=== PATIENT | male | born 1955 | race Caucasian/White ===

== ENCOUNTER 2018-06-21 11:08 | Day surgery (SDC) | payer BC ==
[2018-06-19 12:53] VITALS: BMI 28.5
[2018-06-21] MEDS ORDERED: LACTATED RINGERS 1,000 ML IV ONE (11:35)
[2018-06-21] MEDS ORDERED: LIDOCAINE 1% 20 ML VIAL (10MG/ML) FOR IV START INTRADERMA ONE (11:42)
[2018-06-21 11:46] VITALS: RESP 16; TEMP 97.6
[2018-06-21] MEDS ORDERED: PROPOFOL 10 MG/ML 20 ML VIAL IV ONE (12:52)
--- NOTE | 2018-06-21 13:34 | P.PCN ---
Date of Procedure: 06/21/18 Procedure(s) Performed: Procedure: Colonoscopy and biopsy. Preoperative diagnosis: Rectal bleeding. Postoperative diagnosis: 1. Nonspecific colitis involving distal 30 cm and the area of the IC valve. 2. Diffuse diverticulosis. 3. Biopsies obtained from terminal ileum, IC valve area and sigmoid. Preparation: HalfLytely prep. Sedation: Was provided by anesthesia. Brief clinical history: The patient is a 62-year-old male who is scheduled for this evaluation because of rectal bleeding that he has experienced for the last 6 weeks or so. The patient had normal colonoscopy 3 and 8 years ago with no findings of polyps. He started to have daily rectal bleeding at around 6 weeks ago with increased number of, somewhat urgent bowel movements, especially in the mornings with mucus and blood. He thinks that the bleeding has been improving for the last few days. Procedure: With the patient on his left lateral decubitus position and after informed consent and adequate sedation, the perianal area was inspected and it did not show any fissures or fistulas. There were no masses felt on digital rectal examination. The Olympus CFH 190L video colonoscope was then inserted in the rectum in the usual fashion and advanced to the cecum. I intubated the ileocecal valve and examined the terminal ileum. Terminal ileum appeared within normal. The ileocecal valve showed few spots of submucosal hemorrhage and erythema but no ulcers or bleeding. The distal 30 cm of the colon, with somewhat spared rectum, showed patches of erythema and submucosal hemorrhage but no ulcers, erosions or spontaneous bleeding. In some areas, especially in the rectum, normal mucosa appeared interspersed more obviously between the areas of involvement. No polyps or tumors were seen. There were multiple diverticular orifices seen scattered along the length of the bowel including the right colon. The mucosal changes in the distal 30 cm were obviously in the vicinity of diverticular orifices in that segment. There was no spontaneous bleeding. I retroflexed the endoscope in the rectum before the endoscope was withdrawn. The patient tolerated the procedure well. Plan: The patient was reassured. Will await biopsy results. It is possible that we are dealing with a self-limited infectious process or self-limited colitis. Less likely recent bout of diverticulitis. The possibility of nonspecific inflammatory bowel disease, such as ulcerative or Crohn's colitis should be kept in mind. I plan to see him in the office in a week or 10 days and make further plans based on his course and biopsy results. I will keep you updated on his progress.
[2018-06-21 13:43] VITALS: BP 122/73; PULSE 53
== END 2018-06-21 14:05 | disposition home or self-care (01) ==
LOC: ORWHC2ENDO 11:08 → EDSEX 12:30 → ORWHC2ENDO 14:05
DX: K62.5 Hemorrhage of anus and rectum (principal); K57.90 Diverticulosis of intestine, part unspecified, without perforation or abscess without bleeding; K52.89 Other specified noninfective gastroenteritis and colitis
CPT/HCPCS: 88305; 45380; J2704

== ENCOUNTER 2019-12-05 16:19 | Emergency (ER) | payer BC ==
[2019-12-05 16:32] VITALS: RESP 18; TEMP 98.4
--- NOTE | 2019-12-05 17:04 | ED ---
General Adult HPI - General Chief complaint: Neuro Symptoms/Deficit Stated complaint: Poss Mini Stroke Time Seen by Provider: 12/05/19 16:25 Source: patient, RN notes reviewed, old records reviewed Mode of arrival: ambulatory Limitations: no limitations - History of Present Illness Initial comments: This is a 63-year-old male who presents emergency Department with an episode of altered mental status. According to the he had just had sex when she came back into the room and he was in bed and he was confused and was asking questions that didn't make sense to her. He stated he felt fine but he couldn't tell his their address and didn't know why they were going to the store and this persisted for about 40 minutes and they head on into the emergency department. Symptoms have completely resolved and patient is alert and oriented 4 however he is amnestic to the during that 40 minutes. Of confusion. Patient denies headache patient denies any numbness or weakness. states was no slurred speech. Patient denies any chest pain or palpitations or difficulty breathing. Patient denies any fever chills or cough per patient denies abdominal pain patient denies nausea vomiting or diarrhea. - Related Data Home Medications Medication Instructions Recorded Confirmed Levothyroxine Sodium 100 mcg PO DAILY 06/19/18 06/21/18 Rosuvastatin [Crestor] 20 mg PO DAILY 06/19/18 06/21/18 Allergies Allergy/AdvReac Type Severity Reaction Status Date / Time No Known Allergies Allergy Verified 12/05/19 16:31 Review of Systems ROS Statement: Those systems with pertinent positive or pertinent negative responses have been documented in the HPI. ROS Other: All systems not noted in ROS Statement are negative. Past Medical History Past Medical History: Hyperlipidemia, Thyroid Disorder History of Any Multi-Drug Resistant Organisms: None Reported Past Surgical History: Joint Replacement Additional Past Surgical History / Comment(s): bilateral hips. DEVIATED SEPTUM REPAIRED. COLONOSCOPY Past Anesthesia/Blood Transfusion Reactions: Motion Sickness Past Psychological History: No Psychological Hx Reported Smoking Status: Never smoker Past Alcohol Use History: Daily Past Drug Use History: None Reported - Past Family History Mother Family Medical History: Cancer General Exam - General Exam Comments Initial Comments: GENERAL: Patient is well-developed and well-nourished. Patient is nontoxic and well- hydrated and is in no acute distress. ENT: Neck is soft and supple. No significant lymphadenopathy is noted. Oropharynx is clear. Moist mucous membranes. Neck has full range of motion without eliciting any pain. EYES: The sclera were anicteric and conjunctiva were pink and moist. Extraocular movements were intact and pupils were equal round and reactive to light. Eyelids were unremarkable. PULMONARY: Unlabored respirations. Good breath sounds bilaterally. No audible rales rhonchi or wheezing was noted. CARDIOVASCULAR: There is a regular rate and rhythm without any murmurs gallops or rubs. Femoral pulses are equal bilaterally ABDOMEN: Soft and nontender with normal bowel sounds. No palpable organomegaly was noted. There is no palpable pulsatile mass. SKIN: Skin is clear with no lesions or rashes and otherwise unremarkable. NEUROLOGIC: Patient is alert and oriented x3. Cranial nerves II through XII are grossly intact. Motor and sensory are also intact. Normal speech, volume and content. Symmetrical smile. Cerebellar exam grossly intact. MUSCULOSKELETAL: Normal extremities with adequate strength and full range of motion. No lower extremity swelling or edema. No calf tenderness. LYMPHATICS: No significant lymphadenopathy is noted PSYCHIATRIC: Normal psychiatric evaluation. Normal interpersonal interactions appears functionally intact in deals appropriately with others. No signs of depression. No signs of anxiety. No delusions. No hallucinations. Limitations: no limitations Course Vital Signs 12/05/19 12/05/19 16:24 16:31 Temperature 98.4 F Pulse Rate 70 Respiratory 18 18 Rate Blood Pressure 164/73 O2 Sat by Pulse 97 Oximetry Medical Decision Making - Medical Decision Making EKG shows normal sinus rhythm at 71 bpm AK interval is 160 QRS is 98 QT interval 400 QTC is 434. Patient's EKG shows no ST segment elevation or depression. Chest x-ray shows no acute abnormality. CT of the brain shows no acute abnormality. I told the patient he needed to stay because of the TIA-like symptoms but he refused any states he was signed out even though there was a chance that he could have another stroke and/or possible . is in the room and she was in agreement. Patient states he has an appointment on Monday with his doctor. - Lab Data Result diagrams: 12/05/19 17:03 12/05/19 17:03 Lab Results 12/05/19 12/05/19 12/05/19 Range/Units 17:03 17:03 17:03 WBC 9.1 (3.8-10.6) k/uL RBC 4.59 (4.30-5.90) m/uL Hgb 14.8 (13.0-17.5) gm/dL Hct 44.9 (39.0-53.0) % MCV 97.9 (80.0-100.0) fL MCH 32.4 (25.0-35.0) pg MCHC 33.1 (31.0-37.0) g/dL RDW 14.2 (11.5-15.5) % Plt Count 195 (150-450) k/uL Neutrophils % 82 % Lymphocytes % 10 % Monocytes % 5 % Eosinophils % 2 % Basophils % 0 % Neutrophils # 7.4 (1.3-7.7) k/uL Lymphocytes # 0.9 L (1.0-4.8) k/uL Monocytes # 0.4 (0-1.0) k/uL Eosinophils # 0.1 (0-0.7) k/uL Basophils # 0.0 (0-0.2) k/uL PT 10.4 (9.0-12.0) sec INR 1.0 (<1.2) APTT 24.3 (22.0-30.0) sec Sodium 139 (137-145) mmol/L Potassium 4.3 (3.5-5.1) mmol/L Chloride 104 (98-107) mmol/L Carbon Dioxide 25 (22-30) mmol/L Anion Gap 10 mmol/L BUN 16 (9-20) mg/dL Creatinine 0.87 (0.66-1.25) mg/dL Est GFR (CKD-EPI)AfAm >90 (>60 ml/min/1.73 sqM) Est GFR (CKD-EPI)NonAf >90 (>60 ml/min/1.73 sqM) Glucose 184 H (74-99) mg/dL Calcium 9.8 (8.4-10.2) mg/dL Total Bilirubin 0.7 (0.2-1.3) mg/dL AST 26 (17-59) U/L ALT 19 (4-49) U/L Alkaline Phosphatase 83 (38-126) U/L Troponin I (0.000-0.034) ng/mL Total Protein 7.7 (6.3-8.2) g/dL Albumin 4.9 (3.5-5.0) g/dL 07/23/20 Range/Units 17:03 WBC (3.8-10.6) k/uL RBC (4.30-5.90) m/uL Hgb (13.0-17.5) gm/dL Hct (39.0-53.0) % MCV (80.0-100.0) fL MCH (25.0-35.0) pg MCHC (31.0-37.0) g/dL RDW (11.5-15.5) % Plt Count (150-450) k/uL Neutrophils % % Lymphocytes % % Monocytes % % Eosinophils % % Basophils % % Neutrophils # (1.3-7.7) k/uL Lymphocytes # (1.0-4.8) k/uL Monocytes # (0-1.0) k/uL Eosinophils # (0-0.7) k/uL Basophils # (0-0.2) k/uL PT (9.0-12.0) sec INR (<1.2) APTT (22.0-30.0) sec Sodium (137-145) mmol/L Potassium (3.5-5.1) mmol/L Chloride (98-107) mmol/L Carbon Dioxide (22-30) mmol/L Anion Gap mmol/L BUN (9-20) mg/dL Creatinine (0.66-1.25) mg/dL Est GFR (CKD-EPI)AfAm (>60 ml/min/1.73 sqM) Est GFR (CKD-EPI)NonAf (>60 ml/min/1.73 sqM) Glucose (74-99) mg/dL Calcium (8.4-10.2) mg/dL Total Bilirubin (0.2-1.3) mg/dL AST (17-59) U/L ALT (4-49) U/L Alkaline Phosphatase (38-126) U/L Troponin I <0.012 (0.000-0.034) ng/mL Total Protein (6.3-8.2) g/dL Albumin (3.5-5.0) g/dL Disposition Clinical Impression: Transient cerebral ischemia Disposition: Left Against Medical Advice Condition: Good Instructions (If sedation given, give patient instructions): Transient Ischemic Attack (ED) Additional Instructions: Patient should take a full aspirin every day Is patient prescribed a controlled substance at d/c from ED?: No Referrals: Clinton Lentz MD [Primary Care Provider] - 1-2 days Time of Disposition: 18:45
[2019-12-05 17:14] LABS: Basophils % (A) 0 %; Eosinophils # (A) 0.1 k/uL (0-0.7); Eosinophils % (A) 2 %; HCT 44.9 % (39.0-53.0); HGB 14.8 gm/dL (13.0-17.5); Lymphocytes # (A) 0.9 k/uL (1.0-4.8); Lymphocytes % (A) 10 %; MCH 32.4 pg (25.0-35.0); MCHC 33.1 g/dL (31.0-37.0); MCV 97.9 fL (80.0-100.0); Mean Platelet Volume 8.4; Monocytes # (A) 0.4 k/uL (0-1.0); Monocytes % (A) 5 %; Neutrophils # (A) 7.4 k/uL (1.3-7.7); Neutrophils % (A) 82 %; Platelet Count 195 k/uL (150-450); RBC 4.59 m/uL (4.30-5.90); RDW 14.2 % (11.5-15.5); WBC 9.1 k/uL (3.8-10.6)
[2019-12-05 17:31] LABS: Partial Thromboplastin Time 24.3 sec (22.0-30.0); Prothrombin Time 10.4 sec (9.0-12.0)
[2019-12-05 17:32] LABS: ALT 19 U/L (4-49); AST 26 U/L (17-59); African American GFR (CKD) >90 (>60 ml/min/1.73 sqM); Albumin 4.9 g/dL (3.5-5.0); Alkaline Phosphatase 83 U/L (38-126); Anion Gap 10 mmol/L; Blood Urea Nitrogen 16 mg/dL (9-20); Calcium 9.8 mg/dL (8.4-10.2); Carbon Dioxide 25 mmol/L (22-30); Chloride 104 mmol/L (98-107); Glucose 184 mg/dL (74-99); Non-African American GFR(CKD) >90 (>60 ml/min/1.73 sqM); Potassium 4.3 mmol/L (3.5-5.1); Sodium 139 mmol/L (137-145); Total Bilirubin 0.7 mg/dL (0.2-1.3); Total Protein 7.7 g/dL (6.3-8.2)
--- NOTE | 2019-12-05 17:35 | CT ---
EXAMINATION: CT brain wo con for TPA DATE AND TIME: 12/05/2019 5:22 PM CLINICAL INDICATION: PHH; Neuro deficit, acute, stroke suspected TECHNIQUE: Standard departmental protocol. DLP 1106.4 mGy-cm COMPARISON: None. FINDINGS: The calvarium is intact. There is no intracranial hemorrhage. There is no intracranial mass or mass effect. No definite new intra-axial or extra-axial attenuation defect. The paranasal sinuses, middle ear cavities, and mastoid sinus air cells are clear. The orbits are unremarkable. IMPRESSION: NO ACUTE PROCESS.
--- NOTE | 2019-12-05 18:29 | XR ---
EXAMINATION: XR chest 2V DATE AND TIME: 12/05/2019 5:43 PM CLINICAL INDICATION: PHH; altered mental status TECHNIQUE: Departmental protocol COMPARISON: None FINDINGS: The lungs are clear. The pleural spaces are negative. The cardiac silhouette is not enlarged. The remainder of the mediastinal silhouette is unremarkable. The skeletal structures and soft tissues are negative for acute findings. IMPRESSION: NO ACUTE PROCESS.
[2019-12-05] MEDS ORDERED: ASPIRIN 325 MG TAB PO STA (18:43)
[2019-12-05 18:45] VITALS: BP 139/68; PULSE 73
== END 2019-12-05 19:01 | disposition left against medical advice (07) ==
LOC: EC 16:19
DX: G45.9 Transient cerebral ischemic attack, unspecified (principal); Z53.29 Procedure and treatment not carried out because of patient's decision for other reasons; E78.5 Hyperlipidemia, unspecified; E07.9 Disorder of thyroid, unspecified; Z79.890 Hormone replacement therapy; Z79.899 Other long term (current) drug therapy
CPT/HCPCS: 36415; 70450; 71046; 80053; 84484; 85025; 85610; 85730; 93005; 99285

== ENCOUNTER → 2019-12-19 | Outpatient (CLI) | payer BC ==
--- NOTE | 2019-12-19 09:19 | US ---
EXAMINATION TYPE: US carotid duplex BILAT DATE OF EXAM: 12/19/2019 COMPARISON: NONE CLINICAL HISTORY: G45.9 transient cerebral ischemic attack. TIA EXAM MEASUREMENTS: RIGHT: Peak Systolic Velocity (PSV) cm/sec ----- Right CCA: 118 ----- Right ICA: 151 ----- Right ECA: 151 ICA/CCA ratio: 1.3 RIGHT: End Diastole cm/sec ----- Right CCA: 23.8 ----- Right ICA: 28.3 ----- Right ECA: 16.3 LEFT: Peak Systolic Velocity (PSV) cm/sec ----- Left CCA: 109 ----- Left ICA: 105 ----- Left ECA: 165 ICA/CCA ratio: 1.0 LEFT: End Diastole cm/sec ----- Left CCA: 24.5 ----- Left ICA: 34.5 ----- Left ECA: 13.7 VERTEBRALS (direction of flow): Right Vertebral: Antegrade Left Vertebral: Antegrade Rhythm: Normal Grayscale images show no significant plaque at carotid bulb level bilaterally.Incidental finding, r ight thyroid nodule= 1.1 cm IMPRESSION: No hemodynamically significant stenosis either internal carotid artery. Thyroid nodule g reater than 1.0 cm incidentally noted. Advise complete thyroid ultrasound follow-up if this is not kn own finding. Criteria for Assigning % of Stenosis / Diameter reduction (Estimation based on the indirect measurements of the internal carotid artery velocities (ICA PSV). 1. Normal (no stenosis)=ICA PSV < 125 cm/s: ratio < 2.0: ICA EDV<40 cm/s. 2. Less than 50% stenosis=ICA PSV < 125 cm/s: ratio < 2.0: ICA EDV<40 cm/s. 3. 50 to 69% stenosis=ICA PSV of 125 to 230 cm/s: ration 2.0 ? 4.0: ICA EDV 40-100 cm/s. 4. Greater than 70% stenosis to near occlusion= ICA PSV > 230 cm/s: ratio > 4.0: ICA EDV > 100 cm/s. 5. Near occlusion= ICA PSV velocities may be low or undetectable: variable ratio and ICA EDV. 6. Total occlusion=unable to detect flow.
== END | disposition home or self-care (01) ==
LOC: RADUSWWP 08:47
PROVIDERS: ATTEND Family Medicine
DX: G45.9 Transient cerebral ischemic attack, unspecified (principal)
CPT/HCPCS: 93880

== ENCOUNTER → 2020-01-21 | Outpatient (CLI) | payer BC ==
--- NOTE | 2020-01-21 12:45 | ECHOF ---
Referral Reason:E03.9 hypothyroidism, E04.1 nontoxic nodule MEASUREMENTS -------- HEIGHT: 182.9 cm WEIGHT: 95.3 kg BP: 147/70 RVIDd: 3.0 cm (< 3.3) IVSd: 1.1 cm (0.6 - 1.1) LVIDd: 4.5 cm (3.9 - 5.3) LVPWd: 1.1 cm (0.6 - 1.1) IVSs: 1.7 cm LVIDs: 3.4 cm LVPWs: 1.8 cm LA Diam: 3.7 cm (2.7 - 3.8) LAESV Index (A-L): 18.40 ml/m Ao Diam: 3.5 cm (2.0 - 3.7) AV Cusp: 2.2 cm (1.5 - 2.6) MV EXCURSION: 20.477 mm (> 18.000) MV EF SLOPE: 103 mm/s (70 - 150) EPSS: 0.7 cm MV E Dominic: 0.64 m/s MV DecT: 305 ms MV A Dominic: 0.87 m/s MV E/A Ratio: 0.73 RAP: 5.00 mmHg RVSP: 23.28 mmHg FINDINGS -------- Sinus rhythm. This was a technically good study. The left ventricular size is normal. There is borderline concentric left ventricular hypertrophy. Overall left ventricular systolic function is normal with, an EF between 60 - 65 %. The right ventricle is normal in size. Normal LA size by volume 22+/-6 ml/m2. The right atrium is normal in size. Aneurysmal Interatrial septum. The aortic valve is trileaflet and appears structurally normal. The mitral valve is normal. Mild tricuspid regurgitation present. Right ventricular systolic pressure is normal at < 35 mmHg. Trace/mild (physiologic) pulmonic regurgitation. The aortic root size is normal. Normal inferior vena cava with normal inspiratory collapse consistent with estimated right atrial pre ssure of 5 mmHg. There is no pericardial effusion. CONCLUSIONS -------- 1. The left ventricular size is normal. 2. There is borderline concentric left ventricular hypertrophy. 3. Overall left ventricular systolic function is normal with, an EF between 60 - 65 %. 4. Aneurysmal Interatrial septum. 5. Mild tricuspid regurgitation present. 6. Trace/mild (physiologic) pulmonic regurgitation. 7. There is no pericardial effusion. MEDICAL BILLING CLERK: Annabelle Lopes RDCS
--- NOTE | 2020-01-21 13:38 | US ---
EXAMINATION TYPE: US thyroid st tissue head/neck DATE OF EXAM: 01/21/2020 COMPARISON: Carotid Duplex CLINICAL HISTORY: E03.9 HYPOTHYROIDISM. Takes Levothyroxine. GLAND SIZE: Right Lobe: 3.8 x 1.5 x 1.9 cm Overall Parenchyma: homogenous Left Lobe: 3.1 x 1.8 x 1.5 cm Overall Parenchyma: homogeneous Isthmus Thickness: 0.5 cm NODULES RIGHT: # of nodules measured on right: 1 1. 1.1 X 1.1 x 1.2 cm isoechoic solid nodule at the upper pole with ill defined margins. This nodu le is taller than wide and shows intranodular vascularity. LEFT: # of nodules measured on left: 1 1. 1.9 X 1.5 x 1.9 cm hypoechoic solid nodule at the lower pole with well-defined margins. This no dule is taller than wide and shows intranodular vascularity. ISTHMUS: # of nodules measured in the isthmus: 0 Bilateral neck scanned: no evidence of lymphadenopathy. Homogeneous small size thyroid with 2 greater than 1 cm thyroid nodules noted as detailed above. IMPRESSION: The 1.2 cm right thyroid nodule is TR4 lesion moderately suspicious; advise ultrasound fo llow-up at 1, 2, 3, and 5 years. The larger 1.9 cm left thyroid nodule is highly suspicious TR5 lesio n and ultrasound-guided sampling is advised.
== END | disposition home or self-care (01) ==
LOC: RADECHMAIN 11:19
PROVIDERS: ATTEND Family Medicine
DX: I07.1 Rheumatic tricuspid insufficiency (principal); I25.3 Aneurysm of heart; E04.1 Nontoxic single thyroid nodule; E03.9 Hypothyroidism, unspecified
CPT/HCPCS: 76536; 93306

== ENCOUNTER 2021-03-02 17:52 | Observation (INO) | payer MEDICARE ==
[2021-03-02 18:23] LABS: Glucose,Whole Blood 173 mg/dL (75-99)
[2021-03-02 18:33] LABS: Basophils % (A) 0 %; Eosinophils % (A) 0 %; HCT 44.9 % (39.0-53.0); HGB 15.8 gm/dL (13.0-17.5); Lymphocytes # (A) 0.4 k/uL (1.0-4.8); Lymphocytes % (A) 6 %; MCH 34.9 pg (25.0-35.0); MCHC 35.2 g/dL (31.0-37.0); Mean Platelet Volume 8.2; Monocytes # (A) 0.3 k/uL (0-1.0); Monocytes % (A) 5 %; Neutrophils # (A) 5.9 k/uL (1.3-7.7); Neutrophils % (A) 88 %; Platelet Count 204 k/uL (150-450); RBC 4.54 m/uL (4.30-5.90); RDW 14.2 % (11.5-15.5); WBC 6.8 k/uL (3.8-10.6)
[2021-03-02 18:42] LABS: INR 0.9 (<1.2); Partial Thromboplastin Time 22.7 sec (22.0-30.0)
[2021-03-02 18:43] LABS: ALT 21 U/L (4-49); AST 22 U/L (17-59); African American GFR (CKD) >90 (>60 ml/min/1.73 sqM); Albumin 4.6 g/dL (3.5-5.0); Alcohol <10 mg/dL; Alkaline Phosphatase 82 U/L (38-126); Anion Gap 12 mmol/L; Blood Urea Nitrogen 22 mg/dL (9-20); Carbon Dioxide 22 mmol/L (22-30); Chloride 105 mmol/L (98-107); Glucose 189 mg/dL (74-99); Non-African American GFR(CKD) >90 (>60 ml/min/1.73 sqM); Sodium 139 mmol/L (137-145); Total Bilirubin 0.7 mg/dL (0.2-1.3); Total Protein 7.4 g/dL (6.3-8.2)
--- NOTE | 2021-03-02 19:45 | ED ---
General Adult HPI - General Chief complaint: Altered Mental Status Stated complaint: AMS Source: patient Mode of arrival: ambulatory Limitations: no limitations - History of Present Illness Initial comments: 65-year-old male past history of hyperlipidemia and thyroid disorder presents emergency Department with reported altered mental status. is at bedside and helps provide the history. states that she has left the house. She last talked to her around 4 PM he stated that he was given fishing. reports that he remembers looking the boat up in driving to the [employer]. At this point the patient became confused. States he does not [place] a [place] phone [place] or being at the [employer]. He apparently called his neighbor and told him that he was having difficulty remembering how to put his boat in the water. The neighbor then called the . The patient began driving home however told him to casing puller and she picked him up and brought him into the emergency room. He has had a previous episode similar approximate one year ago. States he was diagnosed with transient global ischemia. The patient denies any recent head injuries. Denies history of strokes. No recent fevers or chills. Patient denies any weakness in his extremities. No chest pain or shortness of breath. Patient not on any blood thinners. Denies any recent med ication changes. No other alleviating, precipitating or modifying factors - Related Data Home Medications Medication Instructions Recorded Confirmed Levothyroxine Sodium 100 mcg PO DAILY 06/19/18 03/02/21 Rosuvastatin [Crestor] 20 mg PO HS 06/19/18 03/02/21 Mesalamine [Lialda] 4.8 gm PO DAILY 03/02/21 03/02/21 predniSONE 7.5 mg PO DAILY 03/02/21 03/02/21 Allergies Allergy/AdvReac Type Severity Reaction Status Date / Time No Known Allergies Allergy Verified 03/02/21 20:42 Review of Systems ROS Statement: Those systems with pertinent positive or pertinent negative responses have been documented in the HPI. ROS Other: All systems not noted in ROS Statement are negative. Past Medical History Past Medical History: Hyperlipidemia, Thyroid Disorder History of Any Multi-Drug Resistant Organisms: None Reported Past Surgical History: Joint Replacement Additional Past Surgical History / Comment(s): bilateral hips. DEVIATED SEPTUM REPAIRED. COLONOSCOPY Past Anesthesia/Blood Transfusion Reactions: Motion Sickness Past Psychological History: No Psychological Hx Reported Smoking Status: Never smoker Past Alcohol Use History: Daily Past Drug Use History: None Reported - Past Family History Mother Family Medical History: Cancer General Exam Limitations: no limitations Course Vital Signs 03/02/21 03/02/21 03/02/21 18:02 19:41 22:21 Temperature 99.8 F H 98.8 F Pulse Rate 93 73 68 Respiratory 20 19 18 Rate Blood Pressure 164/90 139/83 133/88 O2 Sat by Pulse 95 98 98 Oximetry EKG Findings - EKG Comments: EKG Findings:: EKG demonstrates a sinus rhythm with a ventricular rate of 99. NH interval 146. QRS 86. QTC 442. Q wave with inverted T-wave in lead 3. No acute ST segment elevations or depressions Medical Decision Making - Medical Decision Making On arrival patient was promptly placed in trauma bay 1. History and physical exam was performed. NIH is assessed and is 0. Patient is alert and oriented at this time however does not have recollection of the past 2 hours. Last known well would be placed at 4 PM. Due to NIH of 0 at this time code stroke is not initiated however patient is promptly sent over for CT of his brain. CT demonstrates no acute intracranial hemorrhage, midline shift or mass effect. CT angiography demonstrates no vascular occlusion. Minimal narrowing at the bilateral common carotid bifurcation and minimal aphthous chronic disease in the bilateral intracranial internal carotid arteries. The patient is reassessed and NIH continues to be 0. I did recommend admission to the hospital for further evaluation and neurology consultation reports patient did agree to. Spoke with Dr. Black who agreed to admit the patient. Patient taken to the floor in stable condition. - Lab Data Result diagrams: 03/02/21 18:29 03/02/21 18:29 Lab Results 03/02/21 03/02/21 03/02/21 Range/Units 18:11 18:29 18:29 WBC 6.8 (3.8-10.6) k/uL RBC 4.54 (4.30-5.90) m/uL Hgb 15.8 (13.0-17.5) gm/dL Hct 44.9 (39.0-53.0) % MCV 99.0 (80.0-100.0) fL MCH 34.9 (25.0-35.0) pg MCHC 35.2 (31.0-37.0) g/dL RDW 14.2 (11.5-15.5) % Plt Count 204 (150-450) k/uL MPV 8.2 Neutrophils % 88 % Lymphocytes % 6 % Monocytes % 5 % Eosinophils % 0 % Basophils % 0 % Neutrophils # 5.9 (1.3-7.7) k/uL Lymphocytes # 0.4 L (1.0-4.8) k/uL Monocytes # 0.3 (0-1.0) k/uL Eosinophils # 0.0 (0-0.7) k/uL Basophils # 0.0 (0-0.2) k/uL PT 10.0 (9.0-12.0) sec INR 0.9 (<1.2) APTT 22.7 (22.0-30.0) sec Sodium (137-145) mmol/L Potassium (3.5-5.1) mmol/L Chloride (98-107) mmol/L Carbon Dioxide (22-30) mmol/L Anion Gap mmol/L BUN (9-20) mg/dL Creatinine (0.66-1.25) mg/dL Est GFR (CKD-EPI)AfAm (>60 ml/min/1.73 sqM) Est GFR (CKD-EPI)NonAf (>60 ml/min/1.73 sqM) Glucose (74-99) mg/dL POC Glucose (mg/dL) 173 H (75-99) mg/dL POC Glu Health Teacher ID Frances Holm Calcium (8.4-10.2) mg/dL Total Bilirubin (0.2-1.3) mg/dL AST (17-59) U/L ALT (4-49) U/L Alkaline Phosphatase (38-126) U/L Troponin I (0.000-0.034) ng/mL Total Protein (6.3-8.2) g/dL Albumin (3.5-5.0) g/dL TSH (0.465-4.680) mIU/L Serum Alcohol mg/dL 03/02/21 03/02/21 03/02/21 Range/Units 18:29 18:29 21:14 WBC (3.8-10.6) k/uL RBC (4.30-5.90) m/uL Hgb (13.0-17.5) gm/dL Hct (39.0-53.0) % MCV (80.0-100.0) fL MCH (25.0-35.0) pg MCHC (31.0-37.0) g/dL RDW (11.5-15.5) % Plt Count (150-450) k/uL MPV Neutrophils % % Lymphocytes % % Monocytes % % Eosinophils % % Basophils % % Neutrophils # (1.3-7.7) k/uL Lymphocytes # (1.0-4.8) k/uL Monocytes # (0-1.0) k/uL Eosinophils # (0-0.7) k/uL Basophils # (0-0.2) k/uL PT (9.0-12.0) sec INR (<1.2) APTT (22.0-30.0) sec Sodium 139 (137-145) mmol/L Potassium 4.0 (3.5-5.1) mmol/L Chloride 105 (98-107) mmol/L Carbon Dioxide 22 (22-30) mmol/L Anion Gap 12 mmol/L BUN 22 H (9-20) mg/dL Creatinine 0.85 (0.66-1.25) mg/dL Est GFR (CKD-EPI)AfAm >90 (>60 ml/min/1.73 sqM) Est GFR (CKD-EPI)NonAf >90 (>60 ml/min/1.73 sqM) Glucose 189 H (74-99) mg/dL POC Glucose (mg/dL) (75-99) mg/dL POC Glu Health Teacher ID Calcium 10.0 (8.4-10.2) mg/dL Total Bilirubin 0.7 (0.2-1.3) mg/dL AST 22 (17-59) U/L ALT 21 (4-49) U/L Alkaline Phosphatase 82 (38-126) U/L Troponin I <0.012 (0.000-0.034) ng/mL Total Protein 7.4 (6.3-8.2) g/dL Albumin 4.6 (3.5-5.0) g/dL TSH 1.930 (0.465-4.680) mIU/L Serum Alcohol <10 mg/dL Disposition Clinical Impression: Encephalopathy, Global amnesia Disposition: ADMITTED IP TO THIS HOSP Condition: Stable Is patient prescribed a controlled substance at d/c from ED?: No Decision to Admit Reason: Admit from EC Decision Date: 03/02/21 Decision Time: 21:13
--- NOTE | 2021-03-02 19:48 | CT ---
EXAMINATION TYPE: CT brain wo con DATE OF EXAM: 03/02/2021 COMPARISON: 12/05/2019 HISTORY: Memory loss, headache. Neurological deficit, acute, stroke suspected. TECHNIQUE: CT scan of the head performed without contrast CT DLP: 1062.8 mGycm Automated exposure control for dose reduction was used. FINDINGS: No acute intracranial hemorrhage, midline shift or mass effect. Govea-white matter differentiation is preserved. CSF spaces and ventricles are normal in configuration. No acute osseous, orbital or soft tissue abnormality. There is a stable focal soft tissue calcification overlying the vertex. No mastoid air cell effusion or air-fluid levels in the paranasal sinuses. IMPRESSION: NO ACUTE INTRACRANIAL HEMORRHAGE, MIDLINE SHIFT OR MASS EFFECT. STABLE SOFT TISSUE CALCIFICATION OVERLYING THE VERTEX.
--- NOTE | 2021-03-02 20:00 | CT ---
EXAMINATION TYPE: CT angio head neck DATE OF EXAM: 03/02/2021 HISTORY: Memory loss, headache. COMPARISON: None CT DLP: 471.2 mGycm. Automated Exposure Control for Dose Reduction was Utilized. TECHNIQUE: CTA scan of the neck is performed with IV Contrast, patient injected with 65 mL of Isovue 370, axial images are obtained, coronal and sagittal reformatted images are reviewed. 3D reconstruct ed images are created on an independent workstation and reviewed. FINDINGS: Carotid/Vascular Structures: Mild atherosclerotic calcifications are seen in the arch of the aorta an d at the origin of the left subclavian artery and left common carotid artery. The arch of the aorta h as a 3 vessel configuration. There is minimal narrowing of the bilateral common carotid artery bifurc ation secondary to soft and calcific plaque. Both external carotid arteries in the neck are patent. B oth internal carotid arteries in the neck are patent. Both vertebral arteries are patent. Basilar art juan is patent. Intracranial [place] is patent without significant stenosis or occlusion. Mil d atherosclerotic calcifications are seen in the intracranial internal carotid arteries. Other: No acute intracranial hemorrhage, midline shift or mass effect demonstrated. Parapharyngeal fat is maintained. The airways are symmetric. No cervical lymphadenopathy seen. Lung a pices are clear. IMPRESSION: No acute vascular occlusion. Minimal narrowing at the bilateral common carotid artery bifurcation and minimal atherosclerotic disease in the bilateral intracranial internal carotid arteries. NASCET criteria was used in interpretation of this exam?
[2021-03-02] MEDS ORDERED: NALOXONE 0.4 MG/ML 1 ML VIAL IV PRN (21:30)
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
--- NOTE | 2021-03-02 22:17 | XR ---
EXAMINATION TYPE: XR chest 2V DATE OF EXAM: 03/02/2021 COMPARISON: 12/05/2019 HISTORY: Altered mental status TECHNIQUE: FINDINGS: Heart and mediastinum are normal. Lungs are clear. Diaphragm is normal. Bony thorax appears normal. There are chest leads. IMPRESSION: Normal chest. No change.
[2021-03-02] MEDS: HEPARIN SODIUM,PORCINE/PF 5,000 UNIT/0.5 ML SYRINGE SQ SCH (23:09)
[2021-03-03] MEDS: LEVOTHYROXINE 100 MCG TAB PO SCH (06:10)
[2021-03-03 06:33] LABS: Basophils % (A) 0 %; Eosinophils # (A) 0.1 k/uL (0-0.7); Eosinophils % (A) 2 %; HCT 44.2 % (39.0-53.0); HGB 14.9 gm/dL (13.0-17.5); Lymphocytes # (A) 1.3 k/uL (1.0-4.8); Lymphocytes % (A) 23 %; MCH 34.1 pg (25.0-35.0); MCHC 33.6 g/dL (31.0-37.0); MCV 101.5 fL (80.0-100.0); Macrocytosis Slight; Mean Platelet Volume 8.1; Monocytes # (A) 0.5 k/uL (0-1.0); Monocytes % (A) 9 %; Neutrophils # (A) 3.8 k/uL (1.3-7.7); Neutrophils % (A) 66 %; Platelet Count 205 k/uL (150-450); RBC 4.35 m/uL (4.30-5.90); RDW 14.3 % (11.5-15.5); WBC 5.8 k/uL (3.8-10.6)
[2021-03-03 06:45] LABS: African American GFR (CKD) >90 (>60 ml/min/1.73 sqM); Anion Gap 7 mmol/L; Blood Urea Nitrogen 19 mg/dL (9-20); Calcium 9.4 mg/dL (8.4-10.2); Carbon Dioxide 28 mmol/L (22-30); Chloride 104 mmol/L (98-107); Glucose 132 mg/dL (74-99); Non-African American GFR(CKD) 87 (>60 ml/min/1.73 sqM); Potassium 4.2 mmol/L (3.5-5.1); Sodium 139 mmol/L (137-145)
[2021-03-03 07:25] LABS: Glucose,Whole Blood 116 mg/dL (75-99)
[2021-03-03] MEDS: INSULIN ASPART (NovoLOG) 100 UNIT/ML VIAL SQ SCH ×5 (08:27→21:26)
[2021-03-03] MEDS: HEPARIN SODIUM,PORCINE/PF 5,000 UNIT/0.5 ML SYRINGE SQ SCH ×3 (08:59→20:04)
[2021-03-03] MEDS: BALSALAZIDE DISODIUM 750 MG CAPSULE PO SCH ×3 (09:01→20:03)
[2021-03-03] MEDS: predniSONE 2.5 MG TAB PO SCH (09:02)
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
[2021-03-03 12:31] LABS: Glucose,Whole Blood 255 mg/dL (75-99)
[2021-03-03] MEDS ORDERED: LORazepam 2 MG/ML INJ IV STA (13:01)
--- NOTE | 2021-03-03 14:56 | EEG ---
ELECTROENCEPHALOGRAM REPORT DATE OF SERVICE: 03/03/2021. PREAMBLE: This is a 65-year-old male with transient global amnesia. EEG FINDING: This is a 21-channel routine digital EEG recording with video competent, utilizing 10/20 international system with referential and bipolar montages. Background consists of well developed, well regulated, moderate voltage activity in 10 hertz alpha. Background is posterior-dominant and reactive to eye opening and closing. Photic driving response was seen with some flash frequencies. Mild drowsiness was seen with appearance of bilaterally symmetric theta frequency rhythm. Deeper stages of sleep were not seen. No focal or generalized epileptiform activity was seen. EKG channel showed no abnormalities. Hyperventilation was not done. IMPRESSION: This is a normal awake and drowsy EEG. No focal, lateralized or epileptiform activity was seen. MMODL / IJN: [id number] /
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
[2021-03-03 17:24] LABS: Glucose,Whole Blood 138 mg/dL (75-99)
[2021-03-03 20:18] LABS: Glucose,Whole Blood 247 mg/dL (75-99)
[2021-03-03] MEDS ORDERED: ATORVASTATIN 40 MG TAB PO SCH (21:00)
--- NOTE | 2021-03-04 04:58 | MR ---
EXAMINATION TYPE: MR brain wo/w con DATE OF EXAM: 03/03/2021 COMPARISON: None HISTORY: Transient global amnesia CONTRAST: Standard multiplanar, multisequence MRI departmental protocol utilizing 10 mL intravenous Gadavist ga dolinium contrast. Multiplanar multiecho imaging of the brain without and with contrast. Diffusion images show no evidence of an acute infarct. There is mild cerebral atrophy. There is no ma ss effect nor midline shift. There is no sign of intracranial hemorrhage. Brainstem is intact. Govea-w noris matter structures show fairly normal signal pattern. There is no significant white matter diseas e. There are a few scattered white matter high signal foci at the govea-white matter junction of both cerebral hemispheres that measure up to 3 mm. Total number is less than 10. Corpus callosum is intact. Sella turcica is intact. There is no evidence of orbital mass. There is mi ld mucosal thickening in the anterior ethmoid air cells. The contrast images show no pathologic enhancement. There is normal enhancement of the venous sinuses . IMPRESSION: There is mild atrophy appropriate for age. There are scattered very small white matter high signal fo ci of uncertain and doubtful significance. No evidence of a cortical infarct.
[2021-03-04] MEDS: LEVOTHYROXINE 100 MCG TAB PO SCH (06:19)
[2021-03-04 07:02] LABS: Glucose,Whole Blood 169 mg/dL (75-99)
[2021-03-04] MEDS: INSULIN ASPART (NovoLOG) 100 UNIT/ML VIAL SQ SCH ×2 (08:20→13:04)
[2021-03-04] MEDS: HEPARIN SODIUM,PORCINE/PF 5,000 UNIT/0.5 ML SYRINGE SQ SCH ×2 (08:21→17:03)
[2021-03-04] MEDS: predniSONE 2.5 MG TAB PO SCH (08:21)
[2021-03-04] MEDS: BALSALAZIDE DISODIUM 750 MG CAPSULE PO SCH ×2 (08:21→17:03)
[2021-03-04] MEDS ORDERED: ASPIRIN 81 MG PO STA (09:45)
[2021-03-04] MEDS ORDERED: CLOPIDOGREL 75 MG TAB PO SCH (10:00)
[2021-03-04] MEDS ORDERED: FAMOTIDINE 20 MG TAB PO SCH (11:00)
--- NOTE | 2021-03-04 11:17 | P.PN ---
Subjective Progress Note Date: 03/04/21 Patient was seen for a follow-up. Patient is doing well. Offers no new focal symptoms. Denies headache, double vision, numbness tingling, gait imbalance, slurred speech or loss of vision. Objective - Vital Signs Vital signs: Vital Signs Temp 97.7 F 03/04/21 07:00 Pulse 57 L 03/04/21 07:00 Resp 17 03/04/21 07:00 BP 130/74 03/04/21 07:00 Pulse Ox 96 03/04/21 07:00 Intake & Output 03/03/21 03/04/21 03/04/21 18:59 06:59 18:59 Intake Total 600 350 Output Total 1 Balance 599 350 Intake: Oral 600 350 Output: Stool 1 Other: # Voids 2 2 - Exam Patient is an elderly male, in no acute distress. Patient is alert awake oriented to time place and person. Speech and language functions are normal. Attention, concentration and fund of knowledge is adequate. On cranial examination, pupils are round and reacting to light, visual prince are full on confrontation, extraocular muscles are intact with no nystagmus. Face is symmetric, tongue protrudes to the midline. Palatal elevation and sensation normal, hearing and shoulder shrug normal, facial sensation normal. Shoulder shrug normal. On muscle strength testing, there is no pronator drift and the strength is normal in arms and legs distally and proximally. Deep tendon reflexes are hypoactive and plantars downgoing. Sensory to touch is equal with no neglect. Cerebellar function showed no ataxia for [id number] testing. No dysdiadochokinesia. Tone and bulk of muscles normal. Gait normal. On general examination, there is no carotid bruit or murmur, S1-S2 audible. Abdomen is soft nontender. Chest is clear. Peripheral pulses are present. No edema. - Labs CBC & Chem 7: 03/03/21 05:47 03/03/21 05:47 Labs: Abnormal Lab Results - Last 24 Hours (Table) 03/03/21 03/03/21 03/03/21 Range/Units 05:47 12:17 17:16 POC Glucose (mg/dL) 255 H 138 H (75-99) mg/dL Hemoglobin A1c 7.9 H (4.0-6.0) % 03/03/21 03/04/21 Range/Units 20:17 07:01 POC Glucose (mg/dL) 247 H 169 H (75-99) mg/dL Hemoglobin A1c (4.0-6.0) % Assessment and Plan Assessment: * Transient global amnesia. This is a second time this has happened (first time happened 12/05/2019). MRI of the brain revealed four different (tiny) areas of acute ischemia in the posterior circulation (2 tiny areas involving the right medial temporal lobe, one involving the left medial temporal lobe and one in the left lateral janis/cerebral peduncle). Suggestive of probable embolic event. * Hypertension * Diabetes * Hyperlipidemia * Mild to moderate alcoholism. Drinks 2-5 beers per day. * History of ulcerative colitis. Plan: * MRI of the brain with and without contrast was reported as normal. On my review, there are multiple, tiny areas of bright signal on diffusion-weighted images, which raises concern for possible small areas of ischemic infarction (4 of them), all involving the posterior circulation as mentioned above. We will review further with another radiologist. I reviewed the MRI with Dr. Milady stout as well as with Dr. Powell separately. Both of them agreed that there is evidence of small acute areas of ischemia in bilateral hippocampal region, which is classically seen with transient global amnesia. Patient does have evidence of acute ischemia in the left lateral pontine region, but apparently is clinically asymptomatic. Patient denies any dizziness, vertigo. Discussed with primary team. Also informed the patient. * Continue dual antiplatelet agents aspirin and Plavix for 21 days, then stop Plavix and maintain on aspirin indefinitely. * EEG was normal, showed no evidence of any epileptiform activity. * Telemetry monitoring showing normal sinus rhythm, sinus bradycardia in the high 40s and some PVCs, with no other arrhythmia. * CTA of head and neck showed no stenosis, occlusion or aneurysm. * B12 632, folate 17.8, TSH 1.93. * Stat 2-D echo with bubble study was performed, which revealed moderate concentric LVH, EF is between 55-60%, right ventricle is mildly enlarged. Negative agitated saline study for PFO. * Agree with outpatient Holter monitoring to rule out paroxysmal atrial fibrillation. * Follow up with neurologist in 2-4 weeks.
[2021-03-04 11:44] LABS: Glucose,Whole Blood 191 mg/dL (75-99)
[2021-03-04 14:21] VITALS: BP 130/72; PULSE 61; RESP 18; TEMP 98.2
--- NOTE | 2021-03-04 15:00 | ECHOF ---
Referral Reason: MEASUREMENTS -------- HEIGHT: 182.9 cm WEIGHT: 99.8 kg BP: 130/74 IVSd: 1.4 cm (0.6 - 1.1) LVIDd: 4.7 cm (3.9 - 5.3) LVPWd: 1.5 cm (0.6 - 1.1) EDV(Teich): 100 ml IVSs: 1.4 cm LVIDs: 3.3 cm LVPWs: 2.2 cm %IVS Thck: 3 % ESV(Teich): 45 ml EF(Teich): 56 % %FS: 29 % SV(Teich): 56 ml RVIDd: 3.7 cm (< 3.3) LALs A4C: 5.8 cm LAAs A4C: 17.1 cm LAESV A-L A4C: 43 ml LAESV MOD A4C: 37 ml LALs A2C: 5.2 cm LAAs A2C: 18.6 cm LAESV A-L A2C: 57 ml LAESV MOD A2C: 54 ml LAESV(A-L): 52 ml LAESV Index (A-L): 23.64 ml/m Ao Diam: 3.5 cm (2.0 - 3.7) LA Diam: 3.5 cm (2.7 - 3.8) AV Cusp: 2.3 cm (1.5 - 2.6) EPSS: 1.5 cm MV E Dominic: 0.50 m/s MV DecT: 247 ms MV Dec Doddridge: 2.0 m/s MV A Dominic: 0.69 m/s MV E/A Ratio: 0.73 MV PHT: 72 ms LVOT Vmax: 0.85 m/s LVOT maxP.89 mmHg AV Vmax: 1.00 m/s AV maxP.01 mmHg TR Vmax: 2.24 m/s TR maxP.06 mmHg RAP: 5.00 mmHg RVSP: 25.06 mmHg MV EF SLOPE: 129.50 mm/s (70 - 150) MV EXCURSION: 22.20 mm (> 18.000) FINDINGS -------- Sinus rhythm. This was a technically adequate study. There is moderate concentric left ventricular hypertrophy. Overall left ventricular systolic functi on is normal with, an EF between 55 - 60 %. The diastolic filling pattern is normal for the age of the patient 9.61. The right ventricle is mildly enlarged. Normal LA size by volume 22+/-6 ml/m2. The right atrial size is normal. Contrast study was performed with 2 iv injections of 8 ccs of agitated normal saline, at rest, and wi th cough. Negative agitated saline study for a PFO Interatrial and interventricular septum intact. The aortic valve is trileaflet and appears structurally normal. Trace amount of aortic regurgitatio n. There is no evidence of aortic stenosis. There is trace mitral regurgitation. Mild tricuspid regurgitation present. There is no evidence of pulmonary hypertension. The right v entricular systolic pressure, as measured by Doppler, is 25.06mmHg. There is no pulmonic regurgitation present. The aortic root size is normal. IVC Not well visulized. There is no pericardial effusion. CONCLUSIONS -------- 1. There is moderate concentric left ventricular hypertrophy. 2. Overall left ventricular systolic function is normal with, an EF between 55 - 60 %. 3. The diastolic filling pattern is normal for the age of the patient 9.61 4. The right ventricle is mildly enlarged. 5. Contrast study was performed with 2 iv injections of 8 ccs of agitated normal saline, at rest, and with cough. 6. Negative agitated saline study for a PFO 7. Trace amount of aortic regurgitation. 8. There is trace mitral regurgitation. 9. Mild tricuspid regurgitation present. TIPPLE TENDER: Maegan Hagan RDCS
[2021-03-04 16:31] LABS: Chol/HDL Ratio 2.67 Ratio; Folate, Serum 17.8 ng/mL (4.40-31.00); HDL Cholesterol 63.6 mg/dL (40.00-60.00); LDL Cholesterol,Calculated 80.8 mg/dL (0.0-131.0); VLDL Calculation 25.6 mg/dL (5.00-40.00)
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
[2021-03-05] MEDS ORDERED: ASPIRIN 325 MG TAB PO SCH (09:00)
== END 2021-03-04 18:07 | disposition home or self-care (01) ==
LOC: EC 17:52 → 6NMEDSUR 21:30
PROVIDERS: ADMIT Internal Medicine; ATTEND Internal Medicine
DX: R41.82 Altered mental status, unspecified (principal); E11.65 Type 2 diabetes mellitus with hyperglycemia; E03.9 Hypothyroidism, unspecified; K51.90 Ulcerative colitis, unspecified, without complications; R41.3 Other amnesia; I10 Essential (primary) hypertension; E78.5 Hyperlipidemia, unspecified; F10.20 Alcohol dependence, uncomplicated; Z53.29 Procedure and treatment not carried out because of patient's decision for other reasons; R51.9 Headache, unspecified; G93.40 Encephalopathy, unspecified; R00.2 Palpitations; T39.016A Underdosing of aspirin, initial encounter; Z20.822 Contact with and (suspected) exposure to COVID-19; Z86.69 Personal history of other diseases of the nervous system and sense organs; Z79.890 Hormone replacement therapy; Z79.899 Other long term (current) drug therapy; Z79.1 Long term (current) use of non-steroidal anti-inflammatories (NSAID); Z79.84 Long term (current) use of oral hypoglycemic drugs; Z71.89 Other specified counseling; Z80.9 Family history of malignant neoplasm, unspecified
CPT/HCPCS: 96372 ×2; 96374; 99285; 36415; 95816; 93005; 93306; 80061; 80053; 80048; 84443; 82607; 82746; 84484; 85025 ×2; 85610; 85730; 83036; 87635; 71046; 70496; 70450; 70498; 70553; G0378 ×3; G0480; J2060; J7512 ×2; A9585; Q9967; J1644 ×2; 80320

== ENCOUNTER 2021-07-16 12:38 | Day surgery (SDC) | payer MEDICARE ==
[2021-07-14 15:27] VITALS: BMI 26.0
[~2021-07-16 12:38] MED LIST: LACTATED RINGERS 1,000 ML IV SCH
[2021-07-16 12:57] VITALS: RESP 16; TEMP 97.3
[2021-07-16] MEDS ORDERED: PROPOFOL 10 MG/ML 20 ML VIAL IV ONE (13:24)
--- NOTE | 2021-07-16 13:59 | P.PCN ---
Date of Procedure: 07/16/21 Procedure(s) Performed: BRIEF HISTORY: Patient is a 65-year-old pleasant white male scheduled for an elective colonoscopy as a part of evaluation of proctosigmoiditis diagnosed by Dr. Baig in . Had several flareups in the last 3 years requiring treatment with prednisone. Recently had an episode of acute sigmoid diverticula continue with antibiotics. He is currently maintained on Lialda 4 tablets daily. He scheduled for colonoscopy to evaluate the severity and extent of ulcerative colitis. PROCEDURE PERFORMED: Colonoscopy with snare polypectomy and multiple biopsies. PREOPERATIVE DIAGNOSIS: History of ulcerative proctosigmoiditis diagnosed in 2018 IV sedation per Anesthesia. PROCEDURE: After informed consent was obtained, the patient, was brought into the endoscopy unit. IV sedation was administered by Anesthesia under continuous monitoring. Digital rectal examination was normal. Initially the Olympus CF-160 flexible video colonoscope was then inserted in the rectum, gradually advanced into the cecum without any difficulty. Careful examination was performed as the scope was gradually being withdrawn. Ileocecal valve and the appendiceal orifice were visualized and appeared normal. Prep was excellent. Mucosa of the cecum, appeared normal. In the ascending colon there was a 3 cm abnormal appearing area with polypoid-appearing mucosa along with friability which were removed by snare polypectomy followed by multiple biopsies. Complete polypectomy was not done. Since colon appeared normal. The descending colon there was another area. The mucosa appeared slightly polypoid and erythematous and the snare polypectomy was performed. These areas measuring between 5-6 mm in size. Mucosa of the , descending colon, sigmoid colon, multiple patchy areas of erythema with friability noted but normal-appearing intervening mucosa in the vicinity of severe diverticulosis and possibility of ulcerative colitis versus diverticular related colitis considered. Multiple biopsies were done from this area. The rectum appeared normal. Retroflexion was performed in the rectum and no lesions were seen. The patient tolerated the procedure well. IMPRESSION: 3 cm polypoid-appearing mucosa with friability noted in the ascending colon status post partial snare polypectomy followed by multiple biopsies to rule out adenoma 5 mm and 1 cm polypoid-appearing mucosa in the descending colon status post snare polypectomy Patchy areas of erythema noted in the sigmoid colon and descending colon with no erosions or ulcerations in the vicinity of diverticulosis suspicious for diverticular related colitis Rectum appeared normal. RECOMMENDATIONS: Findings of this examination were discussed with the patient as well as his family. At this time will continue with mesalamine 4 tablets daily. He'll follow up in office in 2-3 weeks to discuss the biopsy results..
[2021-07-16 14:15] VITALS: BP 104/62; PULSE 64
== END 2021-07-16 15:06 | disposition home or self-care (01) ==
LOC: ORWHC2ENDO 12:38
PROVIDERS: ATTEND Internal Medicine Gastroenterology
DX: K51.30 Ulcerative (chronic) rectosigmoiditis without complications (principal); E07.9 Disorder of thyroid, unspecified; R00.2 Palpitations; E78.5 Hyperlipidemia, unspecified
CPT/HCPCS: 45380; 45385; 88305; J2704

== ENCOUNTER 2022-11-20 10:56 | Inpatient (IN) | payer MEDICARE ==
--- NOTE | 2022-11-20 11:35 | ED ---
General Adult HPI - General Chief complaint: Abdominal Pain Stated complaint: rectal bleeding Time Seen by Provider: 11/20/22 11:05 Source: patient, EMS, RN notes reviewed, old records reviewed Mode of arrival: EMS Limitations: no limitations - History of Present Illness Initial comments: This is a 66-year-old male who presents emergency Department complaining of rectal bleeding. Patient states she's had 5 episodes since 3 AM this morning. Patient states he has a history of also of colitis and has had this happen in the past. Patient denies any lightheadedness or dizziness. Patient denies any difficulty breathing or palpitations. Patient states he is on Xarelto and he believes he is on it for his prior TIA. Patient states she's also had some discomfort in his chest he states which seems to be worsened with burping or when he eats a lot. Patient states it's a deep feeling in his chest that feels like a sore throat but deeper in his chest. He states his been ongoing since and it slowly improving. And currently the pain is very minimal. Patient denies any shortness of breath associated with it. Patient denies any fever chills. Patient states when he coughs it does hurt worse as well. - Related Data Home Medications Medication Instructions Recorded Confirmed Levothyroxine Sodium 100 mcg PO DAILY 06/19/18 07/16/21 Mesalamine [Lialda] 4.8 gm PO DAILY 03/02/21 07/16/21 Rosuvastatin [Crestor] 20 mg PO HS 07/14/21 07/16/21 Allergies Allergy/AdvReac Type Severity Reaction Status Date / Time No Known Allergies Allergy Verified 07/16/21 12:52 Review of Systems ROS Statement: Those systems with pertinent positive or pertinent negative responses have been documented in the HPI. ROS Other: All systems not noted in ROS Statement are negative. Past Medical History Past Medical History: Atrial Fibrillation, Hyperlipidemia, Thyroid Disorder Additional Past Medical History / Comment(s): Exposed to Covid 07/03/21, states Dr woo was rescheduled to 07/16/21. Mild A-Fib, starting treatment after Colonoscopy. Ulcerative Colitis. History of Any Multi-Drug Resistant Organisms: None Reported Past Surgical History: Joint Replacement Additional Past Surgical History / Comment(s): Bilateral hip replacements. DEVIATED SEPTUM REPAIRED. COLONOSCOPY Past Anesthesia/Blood Transfusion Reactions: No Reported Reaction, Motion Sickness Past Psychological History: No Psychological Hx Reported Smoking Status: Never smoker Past Alcohol Use History: Daily Past Drug Use History: None Reported - Past Family History Mother Family Medical History: Cancer General Exam - General Exam Comments Initial Comments: GENERAL: Patient is well-developed and well-nourished. Patient is nontoxic and well-hyd rated and is in mild distress. ENT: Neck is soft and supple. No significant lymphadenopathy is noted. Oropharynx is clear. Moist mucous membranes. Neck has full range of motion without eliciting any pain. EYES: The sclera were anicteric and conjunctiva were pink and moist. Extraocular movements were intact and pupils were equal round and reactive to light. Eyelids were unremarkable. PULMONARY: Unlabored respirations. Good breath sounds bilaterally. No audible rales rhonchi or wheezing was noted. CARDIOVASCULAR: There is a regular rate and rhythm without any murmurs gallops or rubs. ABDOMEN: Soft and nontender with normal bowel sounds. RECTAL: On rectal exam there was no obvious site or source of bleeding no hemorrhoids noted SKIN: Skin is clear with no lesions or rashes and otherwise unremarkable. NEUROLOGIC: Patient is alert and oriented x3. Cranial nerves II through XII are grossly intact. Motor and sensory are also intact. Normal speech, volume and content. Symmetrical smile. MUSCULOSKELETAL: Normal extremities with adequate strength and full range of motion. No lower extremity swelling or edema. No calf tenderness. LYMPHATICS: No significant lymphadenopathy is noted PSYCHIATRIC: Normal psychiatric evaluation. Limitations: no limitations Course Vital Signs 11/20/22 11/20/22 11/20/22 11:03 11:42 14:19 Pulse Rate 62 61 75 Respiratory 15 15 15 Rate Blood Pressure 152/72 152/72 135/72 O2 Sat by Pulse 99 97 97 Oximetry Medical Decision Making - Medical Decision Making EKG was interpreted by myself. EKG shows sinus bradycardia 58 bpm DC interval is 171 QRS is 100 a QT interval is 425 QTC is 422. Patient's EKG shows no ST segment elevation or depression. Was pt. sent in by a medical professional or institution (, PA, COMMERCIAL RETOUCHER, urgent care, hospital, or long term...) When possible be specific @ -No Did you speak to anyone other than the patient for history (EMS, parent, family, police, friend...)? What history was obtained from this source @ - arrived a couple hours later and gave additional history that was important Did you review nursing and triage notes (agree or disagree)? Why? @ -I reviewed and agree with nursing and triage notes Were old charts reviewed (outside hosp., previous admission, EMS record, old EKG, old radiological studies, urgent care reports/EKG's, long term records)? Report findings @ -I reviewed prior lab work from prior radiological studies Differential Diagnosis (chest pain, altered mental status, abdominal pain women, abdominal pain men, vaginal bleeding, weakness, fever, dyspnea, syncope, headache, dizziness, GI bleed, back pain, seizure, CVA, palpatations, mental hea lth, musculoskeletal)? @ -Differential GI Bleed: Esophageal varices, aortoenteric fistula, Naomi-Giordano, gastritis, peptic ulcer disease, diverticulosis, inflammatory bowel disease, hemorrhoids, fissure, colitis, malignancy, Meckels diverticulum, this is not meant to be an all- inclusive list. EKG interpreted by me (3pts min.). @ -As above X-rays interpreted by me (1pt min.). @ -Chest x-ray shows no acute abnormality CT interpreted by me (1pt min.). @ -None done U/S interpreted by me (1pt. min.). @ -None done What testing was considered but not performed or refused? (CT, X-rays, U/S, labs)? Why? @ -None What meds were considered but not given or refused? Why? @ -None Did you discuss the management of the patient with other professionals (professionals i.e. , PA, COMMERCIAL RETOUCHER, lab, RT, psych nurse, social sciences research scientist, horizontal boring mill set up operator, teacher, naval gunfire liaison officer, case operator)? Give summary @ -I spoke with sounds physician's and the agreed to admit the patient admitted the patient I wrote admitting orders Was smoking cessation discussed for >3mins.? @ -No Was critical care preformed (if so, how long)? @ -No Were there social determinants of health that impacted care today? How? (Homelessness, low income, unemployed, alcoholism, drug addiction, transportation, low edu. Level, literacy, decrease access to med. care, penitentiary, re hab)? @ -No Was there de-escalation of care discussed even if they declined (Discuss DNR or withdrawal of care, Hospice)? DNR status @ -No What co-morbidities impacted this encounter? (DM, HTN, Smoking, COPD, CAD, Cancer, CVA, ARF, Chemo, Hep., AIDS, mental health diagnosis, sleep apnea, morbid obesity)? @ -None Was patient admitted / discharged? Hospital course, mention meds given and route, prescriptions, significant lab abnormalities, going to OR and other pertinent info. @ -Initially came in his only complaint was multiple episodes of rectal bleeding. Patient also stated he had some esophageal issues with sounded like heartburn but when I went back in the room to reevaluate the patient the was there and she mentioned how he was near syncopal at home and then he said yet I was near syncopal event in the ambulance and then I vomited times one none of which was mentioned earlier. Patient also clarified that he is on Xarelto but because of atrial fibrillation. Undiagnosed new problem with uncertain prognosis? @ -No Drug Therapy requiring intensive monitoring for toxicity (Heparin, Nitro, Insulin, Cardizem)? @ -No Were any procedures done? @ -No Diagnosis/symptom? @ -GI bleed Acute, or Chronic, or Acute on Chronic? @ -Acute Uncomplicated (without systemic symptoms) or Complicated (systemic symptoms)? @ -Complicated Side effects of treatment? @ -No Exacerbation, Progression, or Severe Exacerbation? @ -No Poses a threat to life or bodily function? How? (Chest pain, [place], [place], pneumonia, PE, COPD, DKA, ARF, appy, cholecystitis, CVA, Diverticulitis, Homicidal, Suicidal, threat to staff... and all critical care pts) @ -Yes this could lead to significant anemia and then end organ dysfunction Diagnosis/symptom? @ -Near syncope Acute, or Chronic, or Acute on Chronic? @ -Acute Uncomplicated (without systemic symptoms) or Complicated (systemic symptoms)? @ -Chronic Side effects of treatment? @ -none Exacerbation, Progression, or Severe Exacerbation] @ -no Poses a threat to life or bodily function? @ -no - Lab Data Result diagrams: 11/20/22 11:42 11/20/22 11:22 Lab Results 11/20/22 11/20/22 11/20/22 Range/Units 11:22 11:22 11:22 WBC (3.8-10.6) k/uL RBC (4.30-5.90) m/uL Hgb (13.0-17.5) gm/dL Hct (39.0-53.0) % MCV (80.0-100.0) fL MCH (25.0-35.0) pg MCHC (31.0-37.0) g/dL RDW (11.5-15.5) % Plt Count (150-450) k/uL MPV Neutrophils % % Lymphocytes % % Monocytes % % Eosinophils % % Basophils % % Neutrophils # (1.3-7.7) k/uL Lymphocytes # (1.0-4.8) k/uL Monocytes # (0-1.0) k/uL Eosinophils # (0-0.7) k/uL Basophils # (0-0.2) k/uL PT 11.2 (9.0-12.0) sec INR 1.1 (<1.2) APTT 24.5 (22.0-30.0) sec Sodium 137 (137-145) mmol/L Potassium 4.3 (3.5-5.1) mmol/L Chloride 106 (98-107) mmol/L Carbon Dioxide 21 L (22-30) mmol/L Anion Gap 10 mmol/L BUN 13 (9-20) mg/dL Creatinine 0.84 (0.66-1.25) mg/dL Est GFR (CKD-EPI)AfAm >90 (>60 ml/min/1.73 sqM) Est GFR (CKD-EPI)NonAf >90 (>60 ml/min/1.73 sqM) Glucose 201 H (74-99) mg/dL Calcium 8.4 (8.4-10.2) mg/dL Magnesium 1.8 (1.6-2.3) mg/dL Total Bilirubin 0.9 (0.2-1.3) mg/dL AST 25 (17-59) U/L ALT 20 (4-49) U/L Alkaline Phosphatase 85 (38-126) U/L Troponin I <0.012 (0.000-0.034) ng/mL Total Protein 7.1 (6.3-8.2) g/dL Albumin 4.0 (3.5-5.0) g/dL 11/20/22 Range/Units 11:42 WBC 7.6 (3.8-10.6) k/uL RBC 4.26 L (4.30-5.90) m/uL Hgb 14.1 (13.0-17.5) gm/dL Hct 42.2 (39.0-53.0) % MCV 99.0 (80.0-100.0) fL MCH 33.1 (25.0-35.0) pg MCHC 33.5 (31.0-37.0) g/dL RDW 13.7 (11.5-15.5) % Plt Count 168 (150-450) k/uL MPV 8.8 Neutrophils % 80 % Lymphocytes % 11 % Monocytes % 6 % Eosinophils % 2 % Basophils % 0 % Neutrophils # 6.1 (1.3-7.7) k/uL Lymphocytes # 0.8 L (1.0-4.8) k/uL Monocytes # 0.5 (0-1.0) k/uL Eosinophils # 0.1 (0-0.7) k/uL Basophils # 0.0 (0-0.2) k/uL PT (9.0-12.0) sec INR (<1.2) APTT (22.0-30.0) sec Sodium (137-145) mmol/L Potassium (3.5-5.1) mmol/L Chloride (98-107) mmol/L Carbon Dioxide (22-30) mmol/L Anion Gap mmol/L BUN (9-20) mg/dL Creatinine (0.66-1.25) mg/dL Est GFR (CKD-EPI)AfAm (>60 ml/min/1.73 sqM) Est GFR (CKD-EPI)NonAf (>60 ml/min/1.73 sqM) Glucose (74-99) mg/dL Calcium (8.4-10.2) mg/dL Magnesium (1.6-2.3) mg/dL Total Bilirubin (0.2-1.3) mg/dL AST (17-59) U/L ALT (4-49) U/L Alkaline Phosphatase (38-126) U/L Troponin I (0.000-0.034) ng/mL Total Protein (6.3-8.2) g/dL Albumin (3.5-5.0) g/dL Disposition Clinical Impression: GI bleed, Near syncope Disposition: ADMITTED IP TO THIS HOSP Referrals: Clinton Lentz MD [Primary Care Provider] - 1-2 days Time of Disposition: 15:10
[2022-11-20 11:53] LABS: Basophils % (A) 0 %; Eosinophils # (A) 0.1 k/uL (0-0.7); Eosinophils % (A) 2 %; HCT 42.2 % (39.0-53.0); HGB 14.1 gm/dL (13.0-17.5); Lymphocytes # (A) 0.8 k/uL (1.0-4.8); Lymphocytes % (A) 11 %; MCH 33.1 pg (25.0-35.0); MCHC 33.5 g/dL (31.0-37.0); Mean Platelet Volume 8.8; Monocytes # (A) 0.5 k/uL (0-1.0); Monocytes % (A) 6 %; Neutrophils # (A) 6.1 k/uL (1.3-7.7); Neutrophils % (A) 80 %; Platelet Count 168 k/uL (150-450); RBC 4.26 m/uL (4.30-5.90); RDW 13.7 % (11.5-15.5); WBC 7.6 k/uL (3.8-10.6)
[2022-11-20 12:12] LABS: INR 1.1 (<1.2); Partial Thromboplastin Time 24.5 sec (22.0-30.0); Prothrombin Time 11.2 sec (9.0-12.0)
[2022-11-20 12:55] LABS: ALT 20 U/L (4-49); AST 25 U/L (17-59); African American GFR (CKD) >90 (>60 ml/min/1.73 sqM); Alkaline Phosphatase 85 U/L (38-126); Anion Gap 10 mmol/L; Blood Urea Nitrogen 13 mg/dL (9-20); Calcium 8.4 mg/dL (8.4-10.2); Carbon Dioxide 21 mmol/L (22-30); Chloride 106 mmol/L (98-107); Glucose 201 mg/dL (74-99); Magnesium 1.8 mg/dL (1.6-2.3); Non-African American GFR(CKD) >90 (>60 ml/min/1.73 sqM); Potassium 4.3 mmol/L (3.5-5.1); Sodium 137 mmol/L (137-145); Total Bilirubin 0.9 mg/dL (0.2-1.3); Total Protein 7.1 g/dL (6.3-8.2)
[2022-11-20] MEDS ORDERED: PANTOPRAZOLE 40 MG/10 ML VIAL IVP STA (15:10)
[2022-11-20] MEDS ORDERED: SODIUM CHLORIDE 0.9% 1,000 ML IV ONE (15:11)
--- NOTE | 2022-11-20 15:21 | XR ---
EXAMINATION TYPE: XR chest 2V DATE OF EXAM: 11/20/2022 3:17 PM COMPARISON: Chest radiographs from 03/02/2021 TECHNIQUE: XR chest 2V Frontal and lateral views of the chest. CLINICAL INDICATION:Male, 66 years old with history of Difficulty breathing ; FINDINGS: Lungs/Pleura: There is flattening of the diaphragm with increased lucency of the lungs. No evidence o f pneumothorax, pleural effusion or focal consolidation. Pulmonary vascularity: Unremarkable. Heart/mediastinum: Cardiomediastinal silhouette is unremarkable. Musculoskeletal: No acute osseous pathology. IMPRESSION: 1. No acute cardiopulmonary disease process. 2. COPD changes.
--- NOTE | 2022-11-20 16:52 | P.HPIM ---
History of Present Illness H&P Date: 11/20/22 History of Presenting Illness: Patient is a very pleasant 66-year-old male with a past medical history of Hypothyroidism, hyperlipidemia, paroxysmal atrial fibrillation on anticoagulation with Xarelto, diverticulosis with previous episodes of diverticulitis and ulcerative colitis. Patient follows up outpatient with school age lead teacher, Dr. Holden and last underwent a colonoscopy on 07/16/21. He presented to the emergency department today with a chief complaint of bright red blood per rectum. Patient reports he awoke and around 3 AM feeling the urge to go to the restroom and has since had 5 episodes of bright red blood. Patient s tates he has had intermittent abdominal tenderness/cramping but reports it is different from previous episodes of ulcerative colitis and diverticulitis. He reports he attempted to call the office of his school age lead teacher, but realized and no one is in. Patient reports finally on his fifth episode of rectal bleeding he called his to tell her to call an ambulance as he became very dizzy and felt as though he was going to pass out. Patient reports he was so dizzy/lightheaded he was unable to get up from the toilet by himself. He denies having any headache, changes in vision or hearing, chest pain or palpitations, shortness of breath, exertional dyspnea, or any other complaints. He reports only experiencing a large amount of bright red blood per rectum, he denies blood being mixed with stool or noticing any mucus as he typically will add with his ulcerative colitis and denies diarrhea like he would get with his diverticulitis. Patient denies any fevers, chills, or diaphoresis. He underwent full evaluation in the emergency department. Upon arrival to the emergency department vital signs obtained showing blood pressure 152/72, heart rate 62, respiratory rate 16, and SpO2 of 99% on room air. EKG was completed showing sinus bradycardia at 58 bpm with an incomplete right bundle branch block upon personal review and interpretation. Chest x-ray completed in radiology report reviewed stating COPD changes but negative for acute cardiopulmonary process. Labs completed and reviewed. CBC unremarkable with stable hemoglobin of 14.1. Coagulation profile normal findings. BMP unremarkable with the exception of mild hypocarbia with bicarb of 21 and elevated glucose of 201. Troponin negative at less than 0.012. Discussed in detail with ED physician, patient to be admitted under our services with consultation to general surgery. Per ED physician general surgery has accepted care of patient for possible colonoscopy as GI is not available in house this week. Patient reports one additional episode of bright red blood per rectum since arrival to our facility. Patient reports last taking his Xarelto on the evening of 11/19/22. Review of systems: Pertinent positives and negatives as discussed in HPI, a complete review of systems was performed and all other systems are negative. Physical exam: Vital signs reviewed and stable. General: Nontoxic, no distress and appears stated age. Derm: Skin warm and dry, normal coloration for ethnicity. Head: Atraumatic, normocephalic and symmetric. Eyes: EOMs intact, no lid lag, and anicteric sclera Mouth: no lip lesions, mucus membranes moist Cardiovascular: regular rate and rhythm with normal S1S2, no murmur, positive posterior tibial pulses bilaterally, and cap refill < 2 seconds. Lungs: Respirations even, regular, and unlabored on room air. Lungs CTA bilaterally, no rhonchi, no rales, no wheezing, and no accessory muscle usage. Abdominal: soft, slight tenderness reported upon palpation of right lower and left lower quadrants, no guarding, no appreciable organomegaly Ext: ROM intact. No gross muscle atrophy, no edema, no contractures Neuro: Speech clear, face symmetrical and CN II-XII grossly intact with no noted focal neuro deficits Psych: Alert and oriented to person, place, time, and situation. Appropriate and pleasant affect. Assessment and Plan of Care: Lower GI bleed, patient reports bright red blood per rectum Ulcerative colitis History of diverticulitis Paroxysmal atrial fibrillation on anticoagulation with Xarelto, -Vital signs reviewed showing blood pressure 152/72, heart rate 62, respiratory rate 16, and SpO2 of 99% on room air. -EKG was completed showing sinus bradycardia at 58 bpm with an incomplete right bundle branch block upon personal review and interpretation. -Chest x-ray completed in radiology report reviewed stating COPD changes but negative for acute cardiopulmonary process. -Labs completed and reviewed. CBC unremarkable with stable hemoglobin of 14.1. Coagulation profile normal findings. BMP unremarkable with the exception of mild hypocarbia with bicarb of 21 and elevated glucose of 201. Troponin negative at less than 0.012. -Discussed in detail with ED physician, patient to be admitted under our services to general medical unit with telemetry. -Consult placed to general surgeon -Order placed to hold Xarelto at this time. -Order placed for CT abdomen and pelvis with contrast -Monitor H&H every 6 hours x 2 then every 12 hours 2 and transfuse as needed for hemoglobin less than 7. -Protonix 40 mg IVP twice daily. -Clear liquid diet, to be advanced once evaluated by general surgery team. -Continued gentle hydration with 0.9% normal saline in 100 mL's per hour -SCDs for DVT prophylaxis. Hypothyroidism -Continue daily medication regimen with levothyroxine 200 g each morning. Hyperlipidemia -Continue daily medication regimen with rosuvastatin 20 mg nightly. The patient is admitted with an anticipated greater than 2 midnight stay for evaluation of Lower GI bleed on the coagulation CODE STATUS: Full code DVT prophylaxis: SCDs Discussed with: patient, RN, and ED physician Anticipated discharge date: clinical course to determine Anticipated discharge place: :Home Patient was seen independently by Nurse Practitioner. This document was prepared using Archive dictation software. Please allow for errors in breakfast and room attendant while rare they do occur. I reviewed the documentation as provided by the [facility] above, who is the original author of this note. I agree with the documented assessment and plan, with the following changes: none Past Medical History Past Medical History: Atrial Fibrillation, Hyperlipidemia, Thyroid Disorder Additional Past Medical History / Comment(s): Exposed to Covid 07/03/21, states Dr woo was rescheduled to 07/16/21. Mild A-Fib, starting treatment after Colonoscopy. Ulcerative Colitis. History of Any Multi-Drug Resistant Organisms: None Reported Past Surgical History: Joint Replacement Additional Past Surgical History / Comment(s): Bilateral hip replacements. DEVIATED SEPTUM REPAIRED. COLONOSCOPY Past Anesthesia/Blood Transfusion Reactions: No Reported Reaction, Motion S ickness Past Psychological History: No Psychological Hx Reported Smoking Status: Never smoker Past Alcohol Use History: Daily Past Drug Use History: None Reported - Past Family History Mother Family Medical History: Cancer Medications and Allergies Home Medications Medication Instructions Recorded Confirmed Type Mesalamine [Lialda] 4.8 gm PO W/LUNCH 03/02/21 11/20/22 History Rosuvastatin [Crestor] 20 mg PO HS 07/14/21 11/20/22 History Levothyroxine Sodium [Synthroid] 200 mcg PO DIRECTED 11/20/22 11/20/22 History Rivaroxaban [Xarelto] 20 mg PO HS 11/20/22 11/20/22 History predniSONE See Taper PO DAILY 11/20/22 11/20/22 History Allergies Allergy/AdvReac Type Severity Reaction Status Date / Time No Known Allergies Allergy Verified 11/20/22 15:56 Physical Exam Vitals: Vital Signs Pulse Resp BP Pulse Ox 11/20/22 14:19 75 15 135/72 97 11/20/22 11:42 61 15 152/72 97 11/20/22 11:03 62 15 152/72 99 Intake and Output 11/20/22 11/20/22 11/20/22 06:59 14:59 22:59 Other: Weight 92.986 kg Results CBC & Chem 7: 11/21/22 06:11 11/21/22 06:11 Labs: Abnormal Lab Results - Last 24 Hours (Table) 11/20/22 11/20/22 Range/Units 11:22 11:42 RBC 4.26 L (4.30-5.90) m/uL Lymphocytes # 0.8 L (1.0-4.8) k/uL Carbon Dioxide 21 L (22-30) mmol/L Glucose 201 H (74-99) mg/dL
--- NOTE | 2022-11-20 17:43 | CT ---
EXAMINATION TYPE: CT abdomen pelvis w con CT DLP: 1294 mGycm, Automated exposure control for dose reduction was used. DATE OF EXAM: 11/20/2022 5:24 PM COMPARISON: None. CLINICAL INDICATION:Male, 66 years old with history of LLQ RLQ abd pain hematochezia; blood in st ool TECHNIQUE: Axial CT of the abdomen and pelvis. Sagittal and coronal reformats were created on a [employer] workstation. Contrast used:100 mL of Isovue 370 with IV Contrast, (none if empty) Oral contrast used: without Oral Contrast (none if empty) FINDINGS: LOWER CHEST: Unremarkable ABDOMEN LIVER: Unremarkable GALLBLADDER AND BILE DUCTS: Unremarkable. PANCREAS: Unremarkable. SPLEEN: Large splenule inferior to the spleen. ADRENAL GLANDS: Unremarkable. KIDNEYS AND URETERS: No evidence of hydronephrosis or renal calculus. The ureters are unremarkable. PELVIS Limited evaluation secondary to streak artifact. BLADDER: Unremarkable REPRODUCTIVE: Unremarkable. ABDOMEN & PELVIS STOMACH AND BOWEL: No evidence of bowel obstruction. The appendix is normal. Extensive colonic divert iculosis with wall thickening of the sigmoid colon measuring up to 10 mm. Multiple adjacent lymph nod es are seen in the mesentery. The appendix is normal. PERITONEUM/RETROPERITONEUM: No evidence of pneumoperitoneum or free fluid. VASCULATURE: No evidence of aortic aneurysm. MUSCULOSKELETAL: No acute osseous abnormalities, bilateral hip arthroplasty changes with hardware int act. Streak artifact limits evaluation the pelvis. LYMPH NODES: No gross evidence for lymphadenopathy. Prominent nonenlarged lymph nodes exiting the sig moid colon. SOFT TISSUE/ABDOMINAL WALL: Unremarkable IMPRESSION: Circumferential wall thickening of the sigmoid colon suspicious for colitis. Multiple lymph nodes are seen in the adjacent mesentery which could be secondary to the colitis. Colonoscopy recommended afte r treatment throughout malignancy.
[2022-11-20 18:13] LABS: Basophils % (A) 0 %; Eosinophils % (A) 1 %; HGB 13.3 gm/dL (13.0-17.5); Lymphocytes # (A) 0.5 k/uL (1.0-4.8); Lymphocytes % (A) 6 %; MCH 33.4 pg (25.0-35.0); MCHC 34.1 g/dL (31.0-37.0); Mean Platelet Volume 8.9; Monocytes # (A) 0.2 k/uL (0-1.0); Monocytes % (A) 3 %; Neutrophils # (A) 7.1 k/uL (1.3-7.7); Neutrophils % (A) 90 %; Platelet Count 178 k/uL (150-450); RBC 3.98 m/uL (4.30-5.90); RDW 13.7 % (11.5-15.5); WBC 7.9 k/uL (3.8-10.6)
[2022-11-20] MEDS: ATORVASTATIN 40 MG TAB PO SCH (20:52)
[2022-11-20] MEDS: PANTOPRAZOLE 40 MG/10 ML VIAL IVP SCH (20:52)
[2022-11-20 21:46] LABS: Basophils % (A) 0 %; Eosinophils % (A) 0 %; HCT 37.7 % (39.0-53.0); HGB 12.7 gm/dL (13.0-17.5); Lymphocytes # (A) 0.7 k/uL (1.0-4.8); Lymphocytes % (A) 9 %; MCH 32.9 pg (25.0-35.0); MCHC 33.7 g/dL (31.0-37.0); MCV 97.8 fL (80.0-100.0); Mean Platelet Volume 9.4; Monocytes # (A) 0.4 k/uL (0-1.0); Monocytes % (A) 6 %; Neutrophils # (A) 6.2 k/uL (1.3-7.7); Neutrophils % (A) 84 %; Platelet Count 185 k/uL (150-450); RBC 3.86 m/uL (4.30-5.90); RDW 13.7 % (11.5-15.5); WBC 7.5 k/uL (3.8-10.6)
[2022-11-21 06:42] LABS: HCT 35.9 % (39.0-53.0); MCH 33.4 pg (25.0-35.0); MCHC 33.3 g/dL (31.0-37.0); MCV 100.2 fL (80.0-100.0); Mean Platelet Volume 8.7; Platelet Count 182 k/uL (150-450); RBC 3.58 m/uL (4.30-5.90); RDW 13.3 % (11.5-15.5)
[2022-11-21 07:03] LABS: ALT 18 U/L (4-49); AST 19 U/L (17-59); African American GFR (CKD) >90 (>60 ml/min/1.73 sqM); Albumin 3.6 g/dL (3.5-5.0); Alkaline Phosphatase 79 U/L (38-126); Anion Gap 6 mmol/L; Blood Urea Nitrogen 13 mg/dL (9-20); Calcium 8.3 mg/dL (8.4-10.2); Carbon Dioxide 27 mmol/L (22-30); Chloride 104 mmol/L (98-107); Glucose 158 mg/dL (74-99); Non-African American GFR(CKD) >90 (>60 ml/min/1.73 sqM); Sodium 137 mmol/L (137-145); Total Bilirubin 0.7 mg/dL (0.2-1.3); Total Protein 6.3 g/dL (6.3-8.2)
[2022-11-21] MEDS: PANTOPRAZOLE 40 MG/10 ML VIAL IVP SCH ×2 (08:13→21:17)
[2022-11-21] MEDS ORDERED: PANTOPRAZOLE 40 MG/10 ML VIAL IVP SCH (09:00)
[2022-11-21] MEDS ORDERED: predniSONE 10 MG TAB PO SCH (09:00)
[2022-11-21] MEDS: methylPREDNISolone SOD SUCCI 125 MG/2 ML VIAL IV SCH ×3 (10:38→23:26)
[2022-11-21] MEDS: BALSALAZIDE DISODIUM 750 MG CAPSULE PO SCH ×2 (16:40→21:16)
--- NOTE | 2022-11-21 17:42 | P.PN ---
Subjective Progress Note Date: 11/21/22 Hospital course: Patient is a very pleasant 66-year-old male with a past medical history of Hypothyroidism, hyperlipidemia, paroxysmal atrial fibrillation on antic oagulation with Xarelto, diverticulosis with previous episodes of diverticulitis and ulcerative colitis. Patient follows up outpatient with process cheese cooker, Dr. Holden and last underwent a colonoscopy on 07/16/21. He presented to the emergency department today with a chief complaint of bright red blood per rectum. Patient reports he awoke and around 3 AM feeling the urge to go to the restroom and has since had 5 episodes of bright red blood. Patient states he has had intermittent abdominal tenderness/cramping but reports it is different from previous episodes of ulcerative colitis and diverticulitis. He reports he attempted to call the office of his process cheese cooker, but realized and no one is in. Patient reports finally on his fifth episode of rectal bleeding he called his to tell her to call an ambulance as he became very dizzy and felt as though he was going to pass out. Patient reports he was so dizzy/lightheaded he was unable to get up from the toilet by himself. He denies having any headache, changes in vision or hearing, chest pain or palpitations, shortness of breath, exertional dyspnea, or any other complaints. He reports only experiencing a large amount of bright red blood per rectum, he denies blood being mixed with stool or noticing any mucus as he typically will add with his ulcerative colitis and denies diarrhea like he would get with his diverticu litis. Patient denies any fevers, chills, or diaphoresis. He underwent full evaluation in the emergency department. Upon arrival to the emergency department vital signs obtained showing blood pressure 152/72, heart rate 62, respiratory rate 16, and SpO2 of 99% on room air. EKG was completed showing sinus bradycardia at 58 bpm with an incomplete right bundle branch block upon personal review and interpretation. Chest x-ray completed in radiology report reviewed stating COPD changes but negative for acute cardiopulmonary process. Labs completed and reviewed. CBC unremarkable with stable hemoglobin of 14.1. Coagulation profile normal findings. BMP unremarkable with the exception of mild hypocarbia with bicarb of 21 and elevated glucose of 201. Troponin negative at less than 0.012. Discussed in detail with ED physician, patient to be admitted under our services with consultation to general surgery. Per ED physician general surgery has accepted care of patient for possible colonoscopy as GI is not available in house this week. Patient reports one additional episode of bright red blood per rectum since arrival to our facility. Patient reports last taking his Xarelto on the evening of 11/19/22. CT abdomen and pelvis completed revealing circumferential wall thickening of the sigmoid colon suspicious for colitis surrounded by multiple lymph nodes in the adjacent mesentery which could be secondary to the colitis, recommending repeat colonoscopy after treatment to rule out malignancy. Discussed with general surgery PA, we will discontinue surgical consult at this time as patient will not require diagnostic colonoscopy until treatment of acute ulcerative colitis is completed. We will reconsult general surgeon if needed. Physical exam: Patient seen and fully evaluated at the bedside this morning. He reports last episode of bright red blood per rectum being yesterday evening and reports a very small episode this morning. Vital signs reviewed and stable. General: Nontoxic, no distress and appears stated age. Derm: Skin warm and dry, normal coloration for ethnicity. Head: Atraumatic, normocephalic and symmetric. Eyes: EOMs intact, no lid lag, and anicteric sclera Mouth: no lip lesions, mucus membranes moist Cardiovascular: regular rate and rhythm with normal S1S2, no murmur, positive posterior tibial pulses bilaterally, and cap refill < 2 seconds. Lungs: Respirations even, regular, and unlabored on room air. Lungs CTA bilaterally, no rhonchi, no rales, no wheezing, and no accessory muscle usage. Abdominal: soft, slight tenderness reported upon palpation of right lower and left lower quadrants, no guarding, no appreciable organomegaly Ext: ROM intact. No gross muscle atrophy, no edema, no contractures Neuro: Speech clear, face symmetrical and CN II-XII grossly intact with no noted focal neuro deficits Psych: Alert and oriented to person, place, time, and situation. Appropriate and pleasant affect. Assessment and Plan of Care: Lower GI bleed, patient reports bright red blood per rectum Acute exacerbation of Ulcerative colitis History of diverticulitis Paroxysmal atrial fibrillation on anticoagulation with Xarelto -Vital signs reviewed showing blood pressure 152/72, heart rate 62, respiratory rate 16, and SpO2 of 99% on room air. -Morning labs reviewed. Patient has had a 2 g drop in hemoglobin since arrival to our facility however hemoglobin does remain stable at 12.0 from previous 14.1 and CMP remains unremarkable. -CT abdomen and pelvis completed in radiology report reviewed revealing circumferential wall thickening of the sigmoid colon suspicious for colitis surrounded by multiple lymph nodes in the adjacent mesentery which could be secondary to the colitis, recommending repeat colonoscopy after treatment to rule out malignancy. Surrounding lymph nodes likely secondary to inflammatory response as patient undergoes scheduled colonoscopy use with most recent colonoscopy completed 07/16/21. -Continue mesalamine 4.8 g daily and start patient on Solu-Medrol 60 mg every 8 hours we will plan to start on prednisone taper once patient can tolerate oral intake. -Continue to hold Xarelto -Continue with PPI Protonix 40 mg IVP twice daily -Continue clear liquid diet advance to low-fat diet as patient tolerates. -Continue SCDs for DVT prophylaxis. Hypothyroidism -Continue daily medication regimen with levothyroxine 200 g each morning. Hyperlipidemia -Continue daily medication regimen with rosuvastatin 20 mg nightly. CODE STATUS: Full code DVT prophylaxis: SCDs Discussed with: patient and RN Anticipated discharge date: clinical course to determine Anticipated discharge place: :Home Patient was seen independently by Nurse Practitioner. This document was prepared using [employer] dictation software. Please allow for errors in bobbin doffer while rare they do occur. I reviewed the documentation as provided by the [facility] above, who is the original author of this note. I agree with the documented assessment and plan, with the following changes: none Objective - Vital Signs Vital signs: Vital Signs Temp 98.6 F 11/21/22 08:02 Pulse 65 11/21/22 08:02 Resp 16 11/21/22 08:02 BP 166/71 11/21/22 08:02 Pulse Ox 97 11/21/22 08:02 FiO2 Intake & Output 11/20/22 11/21/22 11/21/22 18:59 06:59 18:59 Intake Total 10 Balance 10 Weight 92.986 kg Intake: IV 10 Invasive Line 1 10 Other: # Voids 2 - Labs CBC & Chem 7: 11/21/22 06:11 11/21/22 06:11 Labs: Abnormal Lab Results - Last 24 Hours (Table) 11/20/22 11/20/22 11/20/22 Range/Units 11:22 11:42 18:05 RBC 4.26 L 3.98 L (4.30-5.90) m/uL Hgb (13.0-17.5) gm/dL Hct (39.0-53.0) % MCV (80.0-100.0) fL Lymphocytes # 0.8 L 0.5 L (1.0-4.8) k/uL Carbon Dioxide 21 L (22-30) mmol/L Glucose 201 H (74-99) mg/dL Calcium (8.4-10.2) mg/dL 11/20/22 11/21/22 11/21/22 Range/Units 21:17 06:11 06:11 RBC 3.86 L 3.58 L (4.30-5.90) m/uL Hgb 12.7 L 12.0 L (13.0-17.5) gm/dL Hct 37.7 L 35.9 L (39.0-53.0) % MCV 100.2 H (80.0-100.0) fL Lymphocytes # 0.7 L (1.0-4.8) k/uL Carbon Dioxide (22-30) mmol/L Glucose 158 H (74-99) mg/dL Calcium 8.3 L (8.4-10.2) mg/dL
[2022-11-21] MEDS ORDERED: DEXTROSE 50% SYRINGE 50 ML IVP PRN ×2 (18:25)
[2022-11-21 21:03] LABS: Glucose,Whole Blood 328 mg/dL (70-110)
[2022-11-21] MEDS: ATORVASTATIN 40 MG TAB PO SCH (21:16)
[2022-11-21] MEDS: INSULIN ASPART (NovoLOG) 100 UNIT/ML VIAL SQ SCH (21:17)
[2022-11-22 06:18] LABS: Glucose,Whole Blood 219 mg/dL (70-110)
[2022-11-22] MEDS: INSULIN ASPART (NovoLOG) 100 UNIT/ML VIAL SQ SCH ×4 (06:45→20:12)
[2022-11-22] MEDS: BALSALAZIDE DISODIUM 750 MG CAPSULE PO SCH ×3 (08:55→20:12)
[2022-11-22] MEDS: PANTOPRAZOLE 40 MG/10 ML VIAL IVP SCH ×2 (08:56→20:16)
[2022-11-22] MEDS: methylPREDNISolone SOD SUCCI 125 MG/2 ML VIAL IV SCH ×3 (08:56→23:25)
[2022-11-22] MEDS ORDERED: LEVOTHYROXINE SODIUM PO SCH (09:00)
[2022-11-22] MEDS ORDERED: [UNRECOGNIZED DRUG - OTHER] PO SCH (09:00)
[2022-11-22 09:25] LABS: HCT 34.5 % (39.0-53.0); HGB 11.4 gm/dL (13.0-17.5); MCH 32.9 pg (25.0-35.0); MCHC 33.1 g/dL (31.0-37.0); MCV 99.5 fL (80.0-100.0); Mean Platelet Volume 8.9; Platelet Count 193 k/uL (150-450); RBC 3.47 m/uL (4.30-5.90); RDW 13.3 % (11.5-15.5); WBC 9.5 k/uL (3.8-10.6)
[2022-11-22 09:47] LABS: ALT 20 U/L (4-49); AST 22 U/L (17-59); African American GFR (CKD) >90 (>60 ml/min/1.73 sqM); Albumin 3.9 g/dL (3.5-5.0); Alkaline Phosphatase 84 U/L (38-126); Anion Gap 10 mmol/L; Blood Urea Nitrogen 14 mg/dL (9-20); Calcium 8.4 mg/dL (8.4-10.2); Carbon Dioxide 25 mmol/L (22-30); Chloride 101 mmol/L (98-107); Glucose 253 mg/dL (74-99); Non-African American GFR(CKD) >90 (>60 ml/min/1.73 sqM); Potassium 4.1 mmol/L (3.5-5.1); Sodium 136 mmol/L (137-145); Total Bilirubin 0.6 mg/dL (0.2-1.3); Total Protein 6.8 g/dL (6.3-8.2)
[2022-11-22 11:53] LABS: Glucose,Whole Blood 270 mg/dL (70-110)
--- NOTE | 2022-11-22 14:06 | P.PN ---
Subjective Progress Note Date: 11/22/22 Hospital course: Patient is a very pleasant 66-year-old male with a past medical history of Hypothyroidism, hyperlipidemia, paroxysmal atrial fibrillation on antic oagulation with Xarelto, diverticulosis with previous episodes of diverticulitis and ulcerative colitis. Patient follows up outpatient with installer technician, Dr. Holden and last underwent a colonoscopy on 07/16/21. He presented to the emergency department today with a chief complaint of bright red blood per rectum. Patient reports he awoke and around 3 AM feeling the urge to go to the restroom and has since had 5 episodes of bright red blood. Patient states he has had intermittent abdominal tenderness/cramping but reports it is different from previous episodes of ulcerative colitis and diverticulitis. He reports he attempted to call the office of his installer technician, but realized and no one is in. Patient reports finally on his fifth episode of rectal bleeding he called his to tell her to call an ambulance as he became very dizzy and felt as though he was going to pass out. Patient reports he was so dizzy/lightheaded he was unable to get up from the toilet by himself. He denies having any headache, changes in vision or hearing, chest pain or palpitations, shortness of breath, exertional dyspnea, or any other complaints. He reports only experiencing a large amount of bright red blood per rectum, he denies blood being mixed with stool or noticing any mucus as he typically will add with his ulcerative colitis and denies diarrhea like he would get with his diverticu litis. Patient denies any fevers, chills, or diaphoresis. He underwent full evaluation in the emergency department. Upon arrival to the emergency department vital signs obtained showing blood pressure 152/72, heart rate 62, respiratory rate 16, and SpO2 of 99% on room air. EKG was completed showing sinus bradycardia at 58 bpm with an incomplete right bundle branch block upon personal review and interpretation. Chest x-ray completed in radiology report reviewed stating COPD changes but negative for acute cardiopulmonary process. Labs completed and reviewed. CBC unremarkable with stable hemoglobin of 14.1. Coagulation profile normal findings. BMP unremarkable with the exception of mild hypocarbia with bicarb of 21 and elevated glucose of 201. Troponin negative at less than 0.012. Discussed in detail with ED physician, patient to be admitted under our services with consultation to general surgery. Per ED physician general surgery has accepted care of patient for possible colonoscopy as GI is not available in house this week. Patient reports one additional episode of bright red blood per rectum since arrival to our facility. Patient reports last taking his Xarelto on the evening of 11/19/22. CT abdomen and pelvis completed revealing circumferential wall thickening of the sigmoid colon suspicious for colitis surrounded by multiple lymph nodes in the adjacent mesentery which could be secondary to the colitis, recommending repeat colonoscopy after treatment to rule out malignancy. Discussed with general surgery PA, we will discontinue surgical consult at this time as patient will not require diagnostic colonoscopy until treatment of acute ulcerative colitis is completed. We will reconsult general surgeon if needed. Physical exam: Patient seen and fully evaluated at the bedside this morning. He does report doing better this morning and states having only a couple more episodes of bright red blood streaked but is now having dark black colored stools. He reports occasional abdominal pain but currently all has resolved. Patient tolerating diet and denies having any complaints at this time. Vital signs reviewed and stable. General: Nontoxic, no distress and appears stated age. Derm: Skin warm and dry, normal coloration for ethnicity. Head: Atraumatic, normocephalic and symmetric. Eyes: EOMs intact, no lid lag, and anicteric sclera Mouth: no lip lesions, mucus membranes moist Cardiovascular: regular rate and rhythm with normal S1S2, no murmur, positive posterior tibial pulses bilaterally, and cap refill < 2 seconds. Lungs: Respirations even, regular, and unlabored on room air. Lungs CTA bilaterally, no rhonchi, no rales, no wheezing, and no accessory muscle usage. Abdominal: soft, slight tenderness reported upon palpation of right lower and left lower quadrants, no guarding, no appreciable organomegaly Ext: ROM intact. No gross muscle atrophy, no edema, no contractures Neuro: Speech clear, face symmetrical and CN II-XII grossly intact with no noted focal neuro deficits Psych: Alert and oriented to person, place, time, and situation. Appropriate and pleasant affect. Assessment and Plan of Care: Lower GI bleed, patient reports bright red blood per rectum Acute exacerbation of Ulcerative colitis History of diverticulitis Paroxysmal atrial fibrillation on anticoagulation with Xarelto -Vital signs reviewed showing blood pressure 159/71, heart rate 66, respiratory rate 18, and SpO2 of 97% on room air temp 98.2F. -Morning labs reviewed. Hemoglobin appears to stabilize currently 11.4 which is down nearly 3 g from initial 14.1. ESR elevated at 42 and CRP elevated at 2.9. Blood glucose levels are elevated secondary to IV steroid use. -Called and discussed plan of care with patient's outpatient installer technician, Dr. Holden. Will keep patient on IV steroids for an additional 24 hours and plan to discharge home on extended prednisone taper. -Continue mesalamine 4.8 g daily and Solu-Medrol 60 mg every 8 hours we will plan to start on prednisone taper tomorrow morning. -Continue to hold Xarelto -Continue with PPI Protonix 40 mg IVP twice daily -Continue low-fat diet as patient tolerates. -Continue SCDs for DVT prophylaxis. -Order placed for repeat morning CBC to follow-up with hemoglobin results to monitor for any further decrease. Hyperglycemia -Patient with hyperglycemia secondary to IV steroids with current blood glucose 253. Patient placed on glycemic protocol with NovoLog sliding scale to maintain tight glycemic control will continuation of IV steroids. Hypothyroidism -Continue daily medication regimen with levothyroxine 200 g each morning. Hyperlipidemia -Continue daily medication regimen with rosuvastatin 20 mg nightly. CODE STATUS: Full code DVT prophylaxis: SCDs Discussed with: patient, patient's outpatient installer technician and RN Anticipated discharge date: clinical course to determine Anticipated discharge place: :Home Patient was seen independently by Nurse Practitioner. This document was prepared using [employer] dictation software. Please allow for errors in pick and shovel worker while rare they do occur. I reviewed the documentation as provided by the [facility]NA above, who is the original author of this note. I agree with the documented assessment and plan, with the following changes: none Objective - Vital Signs Vital signs: Vital Signs Temp 97.7 F 11/22/22 05:13 Pulse 65 11/22/22 05:13 Resp 20 11/22/22 05:13 BP 102/50 11/22/22 05:13 Pulse Ox 99 11/22/22 05:13 FiO2 Intake & Output 11/21/22 11/22/22 11/22/22 18:59 06:59 18:59 Intake Total 588 Output Total 340 Balance 248 Intake: IV 10 Invasive Line 1 10 Oral 578 Output: Urine 340 Other: # Voids 3 2 - Labs CBC & Chem 7: 11/23/22 05:29 11/23/22 05:29 Labs: Abnormal Lab Results - Last 24 Hours (Table) 11/21/22 11/22/22 Range/Units 21:02 06:15 POC Glucose (mg/dL) 328 H 219 H (70-110) mg/dL
[2022-11-22 16:53] LABS: Glucose,Whole Blood 291 mg/dL (70-110)
[2022-11-22 20:03] LABS: Glucose,Whole Blood 305 mg/dL (70-110)
[2022-11-22] MEDS: ATORVASTATIN 40 MG TAB PO SCH (20:12)
[2022-11-23 06:07] LABS: Glucose,Whole Blood 239 mg/dL (70-110)
[2022-11-23] MEDS ORDERED: LEVOTHYROXINE SODIUM PO SCH (06:30)
[2022-11-23] MEDS ORDERED: [UNRECOGNIZED DRUG - OTHER] PO SCH (06:30)
[2022-11-23] MEDS: INSULIN ASPART (NovoLOG) 100 UNIT/ML VIAL SQ SCH (06:36)
[2022-11-23 06:46] LABS: HCT 33.8 % (39.0-53.0); HGB 11.2 gm/dL (13.0-17.5); MCH 33.1 pg (25.0-35.0); MCHC 33.3 g/dL (31.0-37.0); MCV 99.5 fL (80.0-100.0); Mean Platelet Volume 8.8; Platelet Count 215 k/uL (150-450); RDW 13.2 % (11.5-15.5); WBC 12.9 k/uL (3.8-10.6)
[2022-11-23 06:51] LABS: ALT 19 U/L (4-49); AST 21 U/L (17-59); African American GFR (CKD) >90 (>60 ml/min/1.73 sqM); Albumin 3.8 g/dL (3.5-5.0); Alkaline Phosphatase 78 U/L (38-126); Anion Gap 7 mmol/L; Blood Urea Nitrogen 21 mg/dL (9-20); Calcium 8.4 mg/dL (8.4-10.2); Carbon Dioxide 26 mmol/L (22-30); Chloride 103 mmol/L (98-107); Glucose 236 mg/dL (74-99); Non-African American GFR(CKD) >90 (>60 ml/min/1.73 sqM); Sodium 136 mmol/L (137-145); Total Bilirubin 0.4 mg/dL (0.2-1.3); Total Protein 6.5 g/dL (6.3-8.2)
[2022-11-23 06:55] VITALS: BP 132/57; PULSE 56; RESP 15; TEMP 97.9
[2022-11-23] MEDS: methylPREDNISolone SOD SUCCI 125 MG/2 ML VIAL IV SCH (08:21)
[2022-11-23] MEDS: PANTOPRAZOLE 40 MG/10 ML VIAL IVP SCH (08:21)
[2022-11-23] MEDS: BALSALAZIDE DISODIUM 750 MG CAPSULE PO SCH (10:05)
--- NOTE | 2022-11-23 10:29 | P.DS ---
Providers Date of admission: 11/20/22 15:11 Expected date of discharge: 11/23/22 Attending physician: Jacob Avalos MD [facility] Course: Discharge Diagnosis: Lower GI bleed, patient reports bright red blood per rectum, patient denies any further episodes of rectal bleeding in greater than 24 hours. Hemoglobin is stable at time of discharge 11.2. Acute exacerbation of Ulcerative colitis. Patient received 48 hours of IV antibiotics with Solu-Medrol 80 mg IVP every 8 hours and is being discharged home on extended prednisone taper as discussed with his primary financial aid manager, Dr. Holden. Patient being discharged home on 56 day taper. History of diverticulitis. Paroxysmal atrial fibrillation on anticoagulation with Xarelto. Patient ins tructed to hold Xarelto 1 week and may resume on 11/27/22. Patient also instructed if bleeding returns after resumption of anticoagulation he will again need to hold anticoagulants and notify member of congress and financial aid manager on further recommendations on holding of anticoagulation. Hyperglycemia. Pt reports borderline diabetic and follows closely with cross country and track and field coach Dr. Domínguez. Pt has appointment at office today to discuss possible placement on medication to lower his blood glucose levels secondary to hyperglycemia experienced when he is on steroids. Patient is being discharged home on extended 56 day prednisone taper as recommended by his financial aid manager. Hypothyroidism. Continue daily medication regimen with levothyroxine 100 g each morning. Hyperlipidemia. Continue daily medication regimen with rosuvastatin 20 mg nightly. Hospital Course: Patient is a very pleasant 66-year-old male with a past medical history of Hypothyroidism, hyperlipidemia, paroxysmal atrial fibrillation on anticoagulation with Xarelto, diverticulosis with previous episodes of diverticulitis and ulcerative colitis. Patient follows up outpatient with gas troenterologist, Dr. Holden and last underwent a colonoscopy on 07/16/21. He presented to the emergency department on 11/30/22 with a chief complaint of bright red blood per rectum. Patient reports he awoke and around 3 AM feeling the urge to go to the restroom and has since had 5 episodes of bright red blood. Patient stated he has had intermittent abdominal tenderness/cramping but reports it is different from previous episodes of ulcerative colitis and diverticulitis. He reports he attempted to call the office of his financial aid manager, but realized and no one is in. Patient reports finally on his fifth episode of rectal bleeding he called his to tell her to call an ambulance as he became very dizzy and felt as though he was going to pass out and had a near syncopal episode. Patient reports he was so dizzy/lightheaded he was unable to get up from the toilet by himself. He underwent full evaluation in the emergency department. Upon arrival to the emergency department vital signs obtained showing blood pressure 152/72, heart rate 62, respiratory rate 16, and SpO2 of 99% on room air. EKG was completed showing sinus bradycardia at 58 bpm with an incomplete right bundle branch block upon personal review and interpretation. Chest x-ray completed in radiology report reviewed stating COPD changes but negative for acute cardiopulmonary process. Labs completed and reviewed. CBC unremarkable with stable hemoglobin of 14.1. Coagulation profile normal findings. BMP unremarkable with the exception of mild hypocarbia with bicarb of 21 and elevated glucose of 201. Troponin negative at less than 0.012. Discussed in detail with ED physician, patient to be admitted under our services with consultation to general surgery. Per ED physician general surgery has accepted care of patient for possible colonoscopy as GI is not available in house this week. Patient reports one additional episode of bright red blood per rectum since arrival to our facility. Patient reports last taking his Xarelto on the evening of 11/19/22. CT abdomen and pelvis completed revealing circumferential wall thickening of the sigmoid colon suspicious for colitis surrounded by multiple lymph nodes in the adjacent mesentery which could be secondary to the colitis, recommending repeat colonoscopy after treatment to rule out malignancy. Discussed with general surgery PA, we will discontinue surgical consult at this time as patient will not require diagnostic colonoscopy until treatment of acute ulcerative colitis is completed. We will reconsult general surgeon if needed. Initially patient reported bright red blood per rectum, Xarelto was held and patient was started on high dose IV steroids for treatment of his ulcerative colitis. Pt denied any further episodes of rectal bleeding in greater than 24 hours. Hemoglobin is stable at time of discharge 11.2. Patient received 48 hours of IV antibiotics with Solu-Medrol 80 mg IVP every 8 hours and is being discharged home on extended prednisone taper as discussed with his primary financial aid manager, Dr. Holden. Patient being discharged home on 56 day taper. Patient instructed to hold Xarelto 1 week and may resume on 11/27/22. Patient also instructed if bleeding returns after resumption of anticoagulation he will again need to hold anticoagulants and notify member of congress and financial aid manager on further recommendations on holding of anticoagulation. Physical exam: Vital signs reviewed and stable. General: Nontoxic, no distress and appears stated age. Derm: Skin warm and dry, normal coloration for ethnicity. Head: Atraumatic, normocephalic and symmetric. Eyes: EOMs intact, no lid lag, and anicteric sclera Mouth: no lip lesions, mucus membranes moist Cardiovascular: regular rate and rhythm with normal S1S2, no murmur, positive posterior tibial pulses bilaterally, and cap refill < 2 seconds. Lungs: Respirations even, regular, and unlabored on room air. Lungs CTA bilatera lly, no rhonchi, no rales, no wheezing, and no accessory muscle usage. Abdominal: soft, slight tenderness reported upon palpation of right lower and left lower quadrants, no guarding, no appreciable organomegaly Ext: ROM intact. No gross muscle atrophy, no edema, no contractures Neuro: Speech clear, face symmetrical and CN II-XII grossly intact with no noted focal neuro deficits Psych: Alert and oriented to person, place, time, and situation. Appropriate and pleasant affect. A total of 42 minutes of time were spent preparing this complex discharge summary. Pt was discharged on 11/23/22 at 9:56 AM Patient was seen independently by Nurse Practitioner. This document was prepared using [employer] dictation software. Please allow for errors in college administrator while rare they do occur. Merrill Pabon NP rendered care for this patient independently, reviewed the findings and plan as documented in the note above. I did not physically speak with or examine the patient on this date. Patient Condition at Discharge: Stable Plan - Discharge Summary Discharge Rx Participant: No New Discharge Prescriptions: New predniSONE See Taper PO DAILY 56 Days #119 tab Pantoprazole [Protonix] 40 mg PO DAILY 60 Days #60 tab Continue Levothyroxine Sodium [Synthroid] 100 mcg PO DAILY Mesalamine [Lialda] 4.8 gm PO W/LUNCH Rosuvastatin [Crestor] 20 mg PO HS predniSONE See Taper PO DAILY No Action Rivaroxaban [Xarelto] 20 mg PO HS Discharge Medication List Mesalamine [Lialda] 4.8 gm PO W/LUNCH 03/02/21 [History] Rosuvastatin [Crestor] 20 mg PO HS 07/14/21 [History] Rivaroxaban [Xarelto] 20 mg PO HS 11/20/22 [History] predniSONE See Taper PO DAILY 11/20/22 [History] Levothyroxine Sodium [Synthroid] 100 mcg PO DAILY 11/22/22 [History] Pantoprazole [Protonix] 40 mg PO DAILY 60 Days #60 tab 11/23/22 [Rx] predniSONE See Taper PO DAILY 56 Days #119 tab 11/23/22 [Rx] Follow up Appointment(s)/Referral(s): Clinton Lentz MD [Primary Care Provider] - 1-2 days (Office stated they will call with follow-up appointment time and date. They have patient on a cancelation list and will call.) Ángela Holden MD [STAFF PHYSICIAN] - 1 Week Patient Instructions/Handouts: Ulcerative Colitis (DC), Diverticulitis Diet (DC) Activity/Diet/Wound Care/Special Instructions: Activity: As tolerated. Take breaks as needed. Diet: Low fat and low fiber diet Special Instructions: Take all of your medications as directed and remember to keep all of your doctor's appointments and follow-up as needed. Please hold your Zarelto for one week. May resume on 11/27/22. If you again develop any rectal bleeding after resuming your Zarelto you will need to both contact your member of congress and financial aid manager for further instructions on how long to hold. As discussed follow up with your cross country and track and field coach, Dr. Domínguez today to discuss if she would like to start you on any medications for management of your blood glucose levels due to extended Prednisone taper you are being discharged home on. Thank you for allowing us to participate in your care, it was truly a pleasure having you for our patient!!! Discharge Disposition: HOME SELF-CARE
== END 2022-11-23 11:40 | disposition home or self-care (01) | DRG 387 ==
LOC: EC 10:56 → 3SCARD 15:11 → 4SSUR 11-22 21:25
PROVIDERS: ADMIT Student in an Organized Health Care Education/Training Program; ATTEND Student in an Organized Health Care Education/Training Program
DX: K51.911 Ulcerative colitis, unspecified with rectal bleeding (principal); E03.9 Hypothyroidism, unspecified; E78.5 Hyperlipidemia, unspecified; R73.9 Hyperglycemia, unspecified; T38.0X5A Adverse effect of glucocorticoids and synthetic analogues, initial encounter; R00.1 Bradycardia, unspecified; I45.10 Unspecified right bundle-branch block; Z96.643 Presence of artificial hip joint, bilateral; K57.90 Diverticulosis of intestine, part unspecified, without perforation or abscess without bleeding; I48.0 Paroxysmal atrial fibrillation; Z79.01 Long term (current) use of anticoagulants; Z79.890 Hormone replacement therapy; Z79.899 Other long term (current) drug therapy; Z86.73 Personal history of transient ischemic attack (TIA), and cerebral infarction without residual deficits; Z20.822 Contact with and (suspected) exposure to COVID-19
CPT/HCPCS: 36415; 71046; 74177; 80053; 83036; 83735; 84484; 85025; 85027; 85610; 85652; 85730; 86140; 93005; 96374; 99285

== ENCOUNTER 2024-07-17 08:43 | Day surgery (SDC) | payer MEDICARE ==
[2024-07-17] MEDS ORDERED: LIDOCAINE 1% (10MG/ML) FOR IV START INTRADERMA PRN (08:55)
[2024-07-17] MEDS: IV FLUID CONTINUATION 1,000 ML IV ONE (09:00)
[2024-07-17 09:05] VITALS: RESP 18; TEMP 97
[2024-07-17] MEDS: LACTATED RINGERS 1,000 ML IV SCH (09:13)
[2024-07-17 09:15] LABS: Glucose,Whole Blood 148 mg/dL (70-110)
[2024-07-17] MEDS ORDERED: PROPOFOL 10 MG/ML 20 ML VIAL IV ONE (09:54)
--- NOTE | 2024-07-17 10:16 | P.PCN ---
Date of Procedure: 07/17/24 Procedure(s) Performed: BRIEF HISTORY: Patient is a 68-year-old pleasant white male scheduled for an elective colonoscopy as a part of screening for longstanding history of ulcerative colitis diagnosed in 2019. 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 He is currently maintained on mesalamine 4 tablets daily and in clinical remission. PROCEDURE PERFORMED: Colonoscopy with biopsy. PREOPERATIVE DIAGNOSIS: Screening for long-term history of ulcerative colitis. IV sedation per Anesthesia. PROCEDURE: After informed consent was obtained, the patient, was brought into the endoscopy unit. IV sedation was administered by Anesthesia under continuous monitoring. Digital rectal examination was normal. Initially the Olympus CF-160 flexible video colonoscope was then inserted in the rectum, gradually advanced into the cecum without any difficulty. Careful examination was performed as the scope was gradually being withdrawn. Ileocecal valve and the appendiceal orifice were visualized and appeared normal. Prep was excellent. Mucosa of the cecum, ascending colon, transverse colon, descending colon, appeared normal. There were mild patchy areas of erythema noted in the sigmoid colon extending from 25 to 35 cm from the incisors. Rest of the sigmoid colon, and rectum appeared normal. Scattered diffuse diverticulosis seen. Random biopsies were done from cecum to rectum at every 10 cm intervals. Retroflexion was performed in the rectum and small internal hemorrhoids were seen. The patient tolerated the procedure well. IMPRESSION: Mild patchy areas of erythema noted in the sigmoid colon extending from 25 to 35 cm from the incisors status post biopsies Rest of the colon appeared normal Scattered sigmoid diverticulosis Small internal hemorrhoids RECOMMENDATIONS: Findings of this examination were discussed with the patient as well as his family. He was advised to follow with the biopsy results.. If the biopsy does not have any evidence of dysplasia, he can have repeat colonoscopy in 2 years.
[2024-07-17 10:40] VITALS: BP 127/76; PULSE 51
== END 2024-07-17 10:52 | disposition home or self-care (01) ==
LOC: ORWHC2ENDO 08:43
PROVIDERS: ATTEND Internal Medicine Gastroenterology
DX: K51.90 Ulcerative colitis, unspecified, without complications (principal); K57.30 Diverticulosis of large intestine without perforation or abscess without bleeding; K64.8 Other hemorrhoids
CPT/HCPCS: 45380; J2704; 88305